=== PATIENT | female | born 1930 | race Caucasian/White ===

== ENCOUNTER 2019-09-25 16:01 | Inpatient (IN) | payer OTHER ==
[~2019-09-25] VITALS: Ht 157.5 cm; Wt 65.8 kg
[2019-09-25 16:02] VITALS: BP_SYST 152
--- NOTE | 2019-09-25 16:10 | NUR ---
Patient presented to ER C/O abdominal pain. PAtient A&Ox4, afebrile, BIB grandson in wheelchair, skin pink and warm, cap refill <3, pain 8/10, N/V/D. Patient states abdominal pain with N/V/D started today at 0215. Patient states she had dinner out last night with family, and she is the only family member experiencing symptoms. Family of patient states this am patient had slurred speech and has HX CVA. PAtient speaking in full sentences, no facial droop noted, no slurred speech at this time.
--- NOTE | 2019-09-25 16:12 | NUR ---
MAYRA Mendes at bedside examining patient.
[2019-09-25] MEDS ORDERED: NACL 0.9% 1,000 ML IV ONE (16:15)
[2019-09-25] MEDS ORDERED: ONDANSETRON HCL 4 MG/2 ML VIAL IVP ONE (16:15)
[2019-09-25] MEDS ORDERED: MORPHINE 2 MG/ML INJ. SYRINGE IVP ONE (16:15)
--- NOTE | 2019-09-25 16:25 | NUR ---
# 20 gauge angiocath placed to right AC. Use of asceptic technique. Opsite placed over site. Blood return noted. Blood for lab drawn from site. Flushed with 10 cc of normal saline. No evidence of infiltration noted. Patient tolerated well. Medicated per MD orders. IVF infusing with no s/s of infiltration at this time. Will cont to monitor
--- NOTE | 2019-09-25 16:30 | NUR ---
NIH stroke scale complete, score 0= No stroke
[2019-09-25 16:35] LABS: BASOPHILS # (AUTO) 0.1 K/uL (0.0-0.2); BASOPHILS % (AUTO) 0.9 % (0.0-2.0); HEMATOCRIT 37.3 % (36-48); HEMOGLOBIN 12.3 g/dL (12.0-16.0); LYMPHOCYTES # (AUTO) 1.5 K/uL (1.0-5.5); MEAN CORPUSCULAR HEMOGLOBIN 29 pg (27-31); MEAN CORPUSCULAR HGB CONC 33 % (32-36); MEAN CORPUSCULAR VOLUME 87 fL (79.0-98.0); MONOCYTES # (AUTO) 0.4 K/uL (0.0-1.0); NEUTROPHILS # (AUTO) 10.6 K/uL (1.8-7.7); NEUTROPHILS % (AUTO) 84.1 % (40.0-70.0); PLATELET COUNT (AUTO) 340 K/uL (130-430); RED CELL DISTRIBUTION WIDTH 15.7 % (9.0-15.0); WHITE BLOOD COUNT (AUTO) 12.6 K/uL (4.8-10.8)
[2019-09-25 16:49] LABS: ANION GAP 12 (5-15); CALCIUM 9.7 mg/dL (8.4-11.0); CHLORIDE 92 mmol/L (98-107); CREATININE 1.08 mg/dL (0.55-1.30); GLUCOSE 263 mg/dL (70-99); SODIUM SERUM 129 mmol/L (136-145); UREA NITROGEN, BLOOD 23 mg/dL (8-21)
[2019-09-25 16:54] LABS: ALANINE AMINOTRANSFERASE 12 U/L (12-78); ALBUMIN 3.7 g/dL (3.4-4.8); ASPARTATE AMINOTRANSFERASE 11 U/L (10-37); LIPASE 304 U/L (73-393); TOTAL BILIRUBIN 0.7 mg/dL (0.0-1.0)
--- NOTE | 2019-09-25 16:55 | NUR ---
EKG performed at BS by Daljit PEDRAZA. Physician given copy of EKG for review.
[2019-09-25] MEDS ORDERED: INSULIN REGULAR, HUMAN 10 UNITS/0.1 ML INJ IVP ONE (17:15)
--- NOTE | 2019-09-25 17:15 | NUR ---
Placed patient on bedpan for urine specimen collection
[2019-09-25] MEDS ORDERED: VALS1TAB78 PO (19:27)
[2019-09-25] MEDS ORDERED: GLIM4TAB PO (19:27)
[2019-09-25] MEDS ORDERED: METF-381 PO (19:27)
[2019-09-25] MEDS ORDERED: LIP10 PO (19:27)
[2019-09-25] MEDS ORDERED: ATEN50TA PO (19:27)
--- NOTE | 2019-09-25 19:27 | NUR ---
Medication reconciliation completed with information provided by patient. Any prior medication reconciliation on file was reviewed and corrected.
--- NOTE | 2019-09-25 19:30 | NUR ---
Report to Navdeep Conteh RN
[2019-09-25] MEDS ORDERED: METOCLOPRAMIDE HCL 10 MG/2 ML VIAL IVP PRN (20:15)
[2019-09-25] MEDS ORDERED: DEXTROSE 50% JECT 50 ML DISP.SYRIN IVP PRN (20:15)
--- NOTE | 2019-09-25 20:30 | NUR ---
Note bobbi in EDM - 09/25/19 at 2111 by JACKSON # 14 FR NG tube placed to l nare. Placement checked by auscultation of instilled air into stomach and aspiration of gastric contents. Tubing taped in place to prevent dislodging. Patient tolerated well.
[2019-09-25] MEDS: ATENOLOL 50 MG TABLET (TENORMIN) PO SCH (21:00)
--- NOTE | 2019-09-25 21:00 | NUR ---
Pt resting in ED bed, No apparent distress noted at this time. Pt given blanket for comfort.
--- NOTE | 2019-09-25 21:00 | NUR ---
Patient will be admitted to care of . Admitted to M/S unit. Will go to room 109C. Belongings list completed. Summary report printed. Report will be given at bedside.
--- NOTE | 2019-09-25 21:14 | NUR ---
Transfer to [facility]. IV present no sign or symptom of infiltration.
--- NOTE | 2019-09-25 21:35 | NUR ---
Admission Note Received patient from ER with diagnosis of SMALL BOWEL OBSTRUCTION. Initial Plan of Care discussed-patient verbalized understanding. Family at bedside. Oriented to room, call light, pain management and safety.
[2019-09-25 21:51] VITALS: BP_SYST 135
[2019-09-25] MEDS: NACL 0.9% 1,000 ML IV SCH (22:23)
[2019-09-25] MEDS: INSULIN REGULAR, HUMAN 100 UNITS/ML, 10 ML VIAL (humuLIN R) SUBCUT PRN (23:32)
--- NOTE | 2019-09-25 23:32 | NUR ---
ACCUCHECK BLOOD SUGAR OF 174, 2 UNITS OF REGULAR INSULIN ADMINISTERED PER SLIDING SCALE.
[2019-09-26 00:20] VITALS: BP_SYST 130
--- NOTE | 2019-09-26 01:45 | NUR ---
CONSULTATION PAGED/CALLED Reason for Consultation: SBO Person Who was Notified: ADÁN Consulting Physician: ELIZA Aging Room Hand Specialty: SURGERY Ordering Physician: IRWIN
--- NOTE | 2019-09-26 02:06 | NUR ---
BEDPAN ASSISTED PT TO USE BEDPAN TO URINATE. PERICARE PROVIDED. PT NOW RESTING IN BED, NO S/S OF DISTRESS. SAFETY AND FALL PRECAUTIONS ARE IN PLACE, CALL LIGHT IS WITH PT. WILL MONITOR.
[2019-09-26] MEDS: MORPHINE 4 MG/ML INJ. SYRINGE IVP PRN ×4 (02:24→17:45)
[2019-09-26] MEDS: ONDANSETRON HCL 4 MG/2 ML VIAL IVP PRN ×3 (02:26→20:55)
--- NOTE | 2019-09-26 02:26 | NUR ---
ZOFRAN/MORPHINE PT REPORTING SEVERE STOMACH AND BACK PAIN, WELL NAUSEA. MORPHINE 4 MG IVP GIVEN FOR SEVERE PAIN. ZOFRAN 4 MG IVP ADMINISTERED FOR NAUSEA. PT TOLERATED WELL. PT STATES THAT SHE IS ANXIOUS. PT ENCOURAGED TO TAKE DEEP BREATHES AND PROVIDED REASSURANCE. PT NOW SLEEPING IN BED WITH NO S/S OF ACUTE DISTRESS. SAFETY AND FALL PRECAUTIONS ARE IN PLACE. WILL MONITOR.
--- NOTE | 2019-09-26 04:50 | NUR ---
NAUSEA/REGLAN PT REPORTING NAUSEA. REGLAN 10 MG IVP ADMINISTERED. MEDICATION AND POTENTIAL SIDE EFFECTS DISCUSSED WITH PT, PT VERBALIZED UNDERSTANDING. PT REPOSITIONED FOR COMFORT. SAFETY PRECAUTIONS MAINTAINED. WILL MONITOR.
[2019-09-26] MEDS: NACL 0.9% 1,000 ML IV SCH ×3 (05:39→20:44)
[2019-09-26] MEDS: INSULIN REGULAR, HUMAN 100 UNITS/ML, 10 ML VIAL (humuLIN R) SUBCUT PRN ×3 (05:44→17:11)
--- NOTE | 2019-09-26 05:44 | NUR ---
ACCUCHECK BLOOD SUGAR OF 199, 2 UNITS OF REGULAR INSULIN ADMINISTERED PER SLIDING SCALE.
--- NOTE | 2019-09-26 06:44 | NUR ---
CLOSING NOTES PATIENT RESTING IN BED. BREATHING UNLABORED ON ROOM AIR. PATIENT NEEDS ATTENDED. BED IN LOWEST LOCKED POSITION WITH ALARM ON. SAFETY PRECAUTIONS IN PLACED. WILL ENDORSE TO DAY SHIFT RN.
--- NOTE | 2019-09-26 07:50 | NUR ---
INITIAL NOTE RECEIVED PT IN BED, NO S/S OF DISTRESS OR SOB NOTED, PT HAS PAIN 1/10 IN ABDOMEN, TOLERABLE AT THIS TIME, PAIN MEDICATION WAS ADMINISTERED PRN ORDERED. PT IN STABLE CONDITION, PT AAOX4, VERBAL. IV CATHETER PATENT, RUNNING IV FLUIDS ORDERED, NO SIGNS OF INFECTION OR INFILTRATION NOTED. PT HAS AN NG TUBE TO LEFT NARES, INTERMITTENT CONTINUOUS SUCTION, PATENT. BED AT LOWEST POSITION, CALL LIGHT WITHIN REACH, WILL CONTINUE TO MONITOR PT FOR ANY CHANGES, FALL AND SAFETY PRECAUTIONS IN PLACE. PT NPO AWAITING FOR DR KAY TO ROUND. Addendum: 09/26/19 at 0809 by Yumi Whitley RN NG TUBE CLAMPED NOT CONNECTED TO SUCTION
[2019-09-26 07:52] LABS: BASOPHILS # (AUTO) 0.1 K/uL (0.0-0.2); BASOPHILS % (AUTO) 0.6 % (0.0-2.0); HEMATOCRIT 37.7 % (36-48); HEMOGLOBIN 12.7 g/dL (12.0-16.0); LYMPHOCYTES % (AUTO) 11.6 % (20.5-51.5); MEAN CORPUSCULAR HEMOGLOBIN 29 pg (27-31); MEAN CORPUSCULAR HGB CONC 34 % (32-36); MEAN CORPUSCULAR VOLUME 86 fL (79.0-98.0); MONOCYTES # (AUTO) 1.1 K/uL (0.0-1.0); MONOCYTES % (AUTO) 6.4 % (1.7-9.3); NEUTROPHILS # (AUTO) 14.2 K/uL (1.8-7.7); NEUTROPHILS % (AUTO) 81.4 % (40.0-70.0); PLATELET COUNT (AUTO) 340 K/uL (130-430); RED BLOOD CELL COUNT(AUTO) 4.37 MIL/uL (4.2-6.2); RED CELL DISTRIBUTION WIDTH 15.7 % (9.0-15.0)
[2019-09-26 07:58] LABS: ALANINE AMINOTRANSFERASE 10 U/L (12-78); ALBUMIN 3.3 g/dL (3.4-4.8); ANION GAP 13 (5-15); ASPARTATE AMINOTRANSFERASE 13 U/L (10-37); CALCIUM 9.1 mg/dL (8.4-11.0); CHLORIDE 95 mmol/L (98-107); CREATININE 1.02 mg/dL (0.55-1.30); GLUCOSE 230 mg/dL (70-99); POTASSIUM 3.4 mmol/L (3.5-5.1); SODIUM SERUM 130 mmol/L (136-145); TOTAL BILIRUBIN 0.6 mg/dL (0.0-1.0); UREA NITROGEN, BLOOD 22 mg/dL (8-21)
[2019-09-26 08:00] VITALS: BP_SYST 155
[2019-09-26] MEDS: ATENOLOL 50 MG TABLET (TENORMIN) PO SCH ×2 (08:01→21:00)
[2019-09-26 08:15] LABS: WHITE BLOOD COUNT (AUTO) 17.5 K/uL (4.8-10.8)
--- NOTE | 2019-09-26 09:21 | NUR ---
MD ROUNDS DR IRWIN MARIA, AWARE OF PATIENT'S CONDITION, AWARE OF PATIENT'S BLOOD PRESSURE, NEW MEDICATIONS GIVEN AND SCD'S FOR DVT PROPHYLAXIS.
[2019-09-26] MEDS ORDERED: ASPIRIN 325 MG TABLET (ECOTRIN) PO ONE (09:45)
[2019-09-26] MEDS ORDERED: ASPIRIN 300 MG/SUPP.RECT SUPP RC ONE (10:00)
[2019-09-26] MEDS ORDERED: LEVOFLOXACIN 500 MG/D5W 100 ML IV SCH (10:00)
[2019-09-26] MEDS ORDERED: GASTROGRAFIN 120 ML ONE ×2 (10:01→12:39)
--- NOTE | 2019-09-26 10:01 | NUR ---
CONSULT CARDIOLOGY CVA DR LU [phone] S/W [place] OFFICE
--- NOTE | 2019-09-26 10:05 | NUR ---
[phone] [facility]
--- NOTE | 2019-09-26 10:08 | NUR ---
CONSULT GI ABDOMINAL PAIN DR SMITH [phone] S/W [place] OFFICE
--- NOTE | 2019-09-26 10:20 | NUR ---
ROUNDS PT IN BED, NO S/S OF DISTRESS OR SOB NOTED, PT HAS NO C/O PAIN AT THIS TIME, PT IN STABLE CONDITION. PT RESTING COMFORTABLY. WILL CONTINUE TO MONITOR PT FOR ANY CHANGES.
--- NOTE | 2019-09-26 10:35 | NUR ---
MD ROUNDS DR ELIZA MARIA, AWARE OF PATIENT'S CONDITION, NEW ORDER FOR SMALL BOWEL FOLLOW THROUGH TO BE DONE TODAY, PT MIGHT NEED TO HAVE SURGERY TODAY.
--- NOTE | 2019-09-26 10:53 | NUR ---
IV RE-INSERTION: IV on right ac accidentally came out, no active bleeding noted, catheter intact. Restarted on right arm, 20 gauge. Successful after one attempt. Resumed current IVF as ordered. Will observe for any signs of infiltration. Aseptic technique used.
[2019-09-26] MEDS: metroNIDAZOLE 500 mg/NS 100 ML IV SCH ×3 (11:02→22:00)
--- NOTE | 2019-09-26 11:30 | NUR ---
BLOOD GLUCOSE SPOKE WITH DR GAYLE IN REGARDS TO BLOOD GLUCOSE OF 354, PER MD TO GO AHEAD AND PROVIDE COVERAGE FOR THIS BLOOD GLUCOSE, 10 UNITS REGULAR INSULIN.
--- NOTE | 2019-09-26 11:45 | NUR ---
ASSISTED FALL PT WAS PICKED UP BY SUCTION PLATE CARRIER CLEANER TO GO TO MRI FOR BRAIN, VIDEO EDITOR AND FAMILY WAS THERE IN THE ROOM, PT WAS ASSISTED OUT OF BED AND THEN GOT WEAK AND STARTED TO SLID DOWN BUT WAS ASSISTED BY VIDEO EDITOR AND SON TO THE WHEELCHAIR. PT DID NOT HIT HER HEAD AND URINATED ON HERSELF DURING THE FALL. NURSE WAS NOT PRESENT BUT WAS CALLED AND WHEN I ARRIVED THE PATIENT WAS SITTING IN THE WHEELCHAIR, PT WAS ALERT AND ORIENTED X3, VERBAL. VSS, 98.6, 99% ROOM AIR SATURATION, 18, 89, 99/62. PT WAS ASSISTED BY ANALYTICAL STATISTICIAN AND NURSE BACK TO BED, DR IRWIN MARIA MADE AWARE THAT PT HAD AN ASSISTED FALL. NO NEW ORDERS GIVEN, MADE HIM AWARE PT DID NOT HIT HEAR HEAD. CHARGE NURSE ALLY MADE AWARE. DEYANIRA NURSE MUSEUM INFORMATICS SPECIALIST MADE AWARE. PT AAOX4, VERBAL, NO S/S OF DISTRESS OR SOB NOTED, PT IN STABLE CONDITION. WILL CONTINUE TO MONITOR PT FOR ANY CHANGES. VSS, 98.6, 18, 102/64, 88, SATURATION OF 99%.
--- NOTE | 2019-09-26 12:00 | NUR ---
MRI PT LEFT UNIT FOR MRI, PT IN STABLE CONDITION, NO S/S OF DISTRESS OR SOB NOTED, PT HAS NO C/O PAIN AT THIS TIME, PT AAOX4, VERBAL. IV CATHETER PATENT, NO SIGNS OF INFECTION OR INFILTRATION NOTED.
[2019-09-26 12:52] VITALS: BP_SYST 147
--- NOTE | 2019-09-26 14:05 | NUR ---
BACK FROM MRI PT BACK FROM MRI, PT IN STABLE CONDITION, NO S/S OF DISTRESS OR SOB NOTED, PT IN STABLE CONDITION, COMFORTABLE AT THIS TIME, NG TUBE WITH NO SUCTION BECAUSE PT IS GETTING A SMALL BOWEL FOLLOW THROUGH.
--- NOTE | 2019-09-26 14:29 | NUR ---
MD STALLINGS SPOKE WITH DR KAY, PER HE WANTS TO KNOW IF DR LU CLEARS PT FOR SURGERY, DR LU PAGED AND AWAITING CALL BACK TO ASK HIM. Addendum: 09/26/19 at 1440 by Yumi Whitley RN PER DR LU HE CLEARED HER FOR SURGERY JUST WANTS TO MAKE SURE THE CHEST X RAY IS DONE.
--- NOTE | 2019-09-26 15:55 | NUR ---
MD CALL SPOKE WITH DR KAY AND HE STATED HE DOES NOT NEED PT, PTT AND INR OR UA NEEDED PRIOR TO POSSIBLE SURGERY.
[2019-09-26 16:52] VITALS: BP_SYST 140
--- NOTE | 2019-09-26 17:43 | NUR ---
IV RE-INSERTION: IV on right forearm accidentally came out, no active bleeding noted, catheter intact. Restarted on right ac, 22 gauge. Successful after one attempt. Resumed current IVF as ordered. Will observe for any signs of infiltration. Aseptic technique used.
--- NOTE | 2019-09-26 18:10 | NUR ---
MD CALL CALLED DR KAY AND MADE HIM AWARE OF PRELIMINARY RESULTS OF SMALL BOWEL FOLLOW THROUGH, PER MD PT TO HAVE SURGERY TONIGHT.
--- NOTE | 2019-09-26 18:40 | NUR ---
MD ROUNDS DR ALLEN HERE TO SPEAK WITH PT ABOUT CONSENT FOR ANESTHESIA, PT WILL HAVE SURGERY IN ONE HOUR.
--- NOTE | 2019-09-26 18:41 | NUR ---
CLOSING NOTE PT IN BED, NO S/S OF DISTRESS OR SOB NOTED, PT HAS NO C/O PAIN AT THIS TIME, PT IN STABLE CONDITION, PT AAOX4, VERBAL. IV CATHETER PATENT, RUNNING IV FLUIDS ORDERED, NO SIGNS OF INFECTION OR INFILTRATION NOTED. PT HAS AN NG TUBE TO LEFT NARES, PATENT. BED AT LOWEST POSITION, CALL LIGHT WITHIN REACH, WILL ENDORSE CARE OF PT TO INCOMING NURSE, FALL AND SAFETY PRECAUTIONS IN PLACE. PT NPO AWAITING FOR DR KAY FOR SURGERY [facility].
--- NOTE | 2019-09-26 19:20 | NUR ---
INITIAL NOTE RECEIVED PT IN BED WITH FAMILY AT BEDSIDE, NO S/S OF DISTRESS OR SOB NOTED, PT HAS PAIN IN ABDOMEN AND NAUSEA, TOLERABLE AT THIS TIME.. PT IN STABLE CONDITION, PT AAOX4, VERBAL. IV CATHETER PATENT, RUNNING IV FLUIDS ORDERED, NO SIGNS OF INFECTION OR INFILTRATION NOTED. PT PULLED OUT NGT AT SHIFT CHANGE PER PT'S FAMILY. SAFETY PRECAUTIONS ARE IN PLACE: BED IS AT LOWEST POSITION, CALL LIGHT WITHIN REACH, WILL CONTINUE TO MONITOR PT FOR ANY CHANGES, FALL AND SAFETY PRECAUTIONS IN PLACE. PT NPO AWAITING SURGERY. POC DISCUSSED WITH PT AND FAMILY.
[2019-09-26 19:30] VITALS: BP_SYST 97
[2019-09-26] MEDS ORDERED: fentaNYL CITRATE/PF 100 MCG/2 ML AMP IVP PRN ×2 (22:15)
--- NOTE | 2019-09-26 23:13 | NUR ---
Arrived in ICU accompanied by car pre cooler, Dr. Steinberg and RT. Pt on vent/O2 sat at 100%. Skiin warm dry, pt none responsive at this time. EKG at RSR Rate 96. BP 150\86. Patient under care of car pre cooler.
[2019-09-27] VITALS (27 sets, daily range): BP systolic 98–168
[2019-09-27] MEDS ORDERED: MEPERIDINE HCL/PF 25 MG/ML DISP.SYRIN IVP PRN (00:15)
--- NOTE | 2019-09-27 00:25 | NUR ---
Received report from OR nurse, Namrata. Patient was placed in ICU bed 2, s/p exploratory laparoscopy of small bowel resection. Pt has hx of TIA, HTN and diabetes. Patient came in with 16F ervin in place, VSS, 7.5mm ETT tube lipline at 22cm with TV of 500 and FiO2 at 100%. Pt has 22gauge IV to Right AC, patent, no signs of infiltration, edema or erythema. Skin is intact. No drainage on dressing to midline abdomen from incision . No other injuries/complaints noted.
[2019-09-27] MEDS ORDERED: MEPERIDINE HCL/PF 25 MG/ML DISP.SYRIN ONE (00:27)
[2019-09-27] MEDS: NACL 0.9% 1,000 ML IV SCH ×2 (01:47→14:15)
[2019-09-27] MEDS: MORPHINE 2 MG/ML INJ. SYRINGE IVP PRN (01:56)
--- NOTE | 2019-09-27 03:00 | NUR ---
PATIENT IN BED, NO ACUTE DISTRESS. VSS. WILL CONTINUE TO MONITOR.
[2019-09-27] MEDS: MORPHINE 4 MG/ML INJ. SYRINGE IVP PRN ×2 (03:36→20:48)
[2019-09-27] MEDS: INSULIN REGULAR, HUMAN 100 UNITS/ML, 10 ML VIAL (humuLIN R) SUBCUT PRN ×3 (05:22→19:46)
[2019-09-27] MEDS: metroNIDAZOLE 500 mg/NS 100 ML IV SCH ×3 (05:23→22:52)
[2019-09-27 05:50] LABS: BASOPHILS % (AUTO) 0.1 % (0.0-2.0); HEMATOCRIT 35.9 % (36-48); LYMPHOCYTES % (AUTO) 9.9 % (20.5-51.5); MEAN CORPUSCULAR HEMOGLOBIN 29 pg (27-31); MEAN CORPUSCULAR HGB CONC 34 % (32-36); MEAN CORPUSCULAR VOLUME 87 fL (79.0-98.0); MONOCYTES # (AUTO) 0.7 K/uL (0.0-1.0); MONOCYTES % (AUTO) 6.4 % (1.7-9.3); NEUTROPHILS # (AUTO) 8.5 K/uL (1.8-7.7); NEUTROPHILS % (AUTO) 83.6 % (40.0-70.0); PLATELET COUNT (AUTO) 264 K/uL (130-430); RED BLOOD CELL COUNT(AUTO) 4.13 MIL/uL (4.2-6.2); RED CELL DISTRIBUTION WIDTH 15.9 % (9.0-15.0); WHITE BLOOD COUNT (AUTO) 10.2 K/uL (4.8-10.8)
[2019-09-27 06:08] LABS: INR 1.1 (0.8-1.2); PROTHROMBIN TIME 10.6 SECS (9.5-12.5)
[2019-09-27 06:13] LABS: ALANINE AMINOTRANSFERASE 29 U/L (12-78); ALBUMIN 2.5 g/dL (3.4-4.8); ANION GAP 14 (5-15); ASPARTATE AMINOTRANSFERASE 26 U/L (10-37); CALCIUM 8.1 mg/dL (8.4-11.0); CHLORIDE 99 mmol/L (98-107); CHOLESTEROL 129 mg/dL (<200); CREATININE 2.13 mg/dL (0.55-1.30); GLUCOSE 236 mg/dL (70-99); HDL CHOLESTEROL 51 mg/dL (>55); LDL CHOLESTEROL 55 mg/dL (<100); LIPASE 192 U/L (73-393); POTASSIUM 3.6 mmol/L (3.5-5.1); SODIUM SERUM 133 mmol/L (136-145); TOTAL BILIRUBIN 0.4 mg/dL (0.0-1.0); TRIGLYCERIDES 91 mg/dL (30-150); UREA NITROGEN, BLOOD 38 mg/dL (8-21)
--- NOTE | 2019-09-27 07:04 | NUR ---
PATIENT IN HOSPITAL BED, NO SIGNS OF ACUTE DISTRESS. RISE AND FALL OF CHEST IS SYMMETRICAL. PT HR IS CURRENTLY HR 95, 103/65, O2 100% RA. FIO2 @ 100, TIDAL VOLUME @ 500. PT LAYING IN SUPINE POSITION. IV TO RIGHT AC IS PATENT, NO ERYTHEMA, EDEMA OR INFILTRATION. AVITIA IS INTACT. ALL NEEDS MET. WILL ENDORSE CARE TO ONCOMING NURSE.
--- NOTE | 2019-09-27 07:30 | NUR ---
Received report to assume care. Pt does not respond to verbal instruction. LATONIA 2mm. Pt has an ET to vent and in no distress on the AC 12/500/100%. Lungs clear. HOB up. 02 sats 99%. Pts abd dressing is D/I. Abd tender with no bowel sounds. N pedal edema noptd. Feet lifted off of bed on pillows. IVf infusing to Right AC at 100cc/hr. Will continue to monitor pt.
--- NOTE | 2019-09-27 08:10 | NUR ---
RT NOTES Vent settings to SIMV 8 PS10 FIO2 50% per Dr Tavarez. No adverse reactions noted. Will monitor pt.
[2019-09-27] MEDS ORDERED: NACL 0.9% 1,000 ML IV ONE (08:15)
[2019-09-27] MEDS ORDERED: LEVOFLOXACIN 250 MG/D5W 50 ML IV SCH (09:00)
[2019-09-27] MEDS ORDERED: ASPIRIN 325 MG TABLET (ECOTRIN) PO SCH (09:00)
--- NOTE | 2019-09-27 09:10 | NUR ---
Opening Note Received plan of care via sbar from Sulema ALCARAZ. Completed patient round.
[2019-09-27] MEDS: ATENOLOL 50 MG TABLET (TENORMIN) PO SCH ×2 (09:25→20:46)
--- NOTE | 2019-09-27 09:29 | NUR ---
Called Dr. Fields with a consult, spoke with Renuka from doctors office
--- NOTE | 2019-09-27 09:30 | NUR ---
Critical Value Received ABG report and was given critical of BE of -6
--- NOTE | 2019-09-27 09:30 | NUR ---
Report given to Boogie to assume care of pt. Pt in SR rate 105 on monitor. Reed with very small amount of lynette urine in bag. Dr Tavarez rounded and orders left. NS bolus infusing.
--- NOTE | 2019-09-27 09:55 | NUR ---
Nutrition Update Yang Scale 12 noted. Pt admitted for SBO. Diet: NPO BMI: 26.8 kg/m2 RD to follow per nutrition care standards.
[2019-09-27] MEDS: PIPERACILLIN/TAZO 2.25G/DEX-IS 50 ML IV SCH ×3 (09:59→19:51)
--- NOTE | 2019-09-27 10:00 | NUR ---
Spoke with Dr. Fields and reported ABGs including critical value of BE -6. Per Dr. Fields proceed with Dr. Tavarez's vent changes to CPAP 5 PS 5 and she will be in to assess patient. If PT does not tolerate revert back to SIMV 8 TV 500 FIO2 50.
--- NOTE | 2019-09-27 10:25 | NUR ---
RT NOTES Vent settings to CPAP [address] Tavarez's order. Will monitor pt.
[2019-09-27] MEDS: ASPIRIN 300 MG/SUPP.RECT SUPP RC SCH (11:12)
--- NOTE | 2019-09-27 12:16 | NUR ---
Dietitian Recommendations * Recommend continuing NPO order * Consider advance diet if/when medically appropriate LP, RD Please refer to Nutrition Assessment for details. Addendum: 09/27/19 at [address] Amended: Links added.
--- NOTE | 2019-09-27 12:30 | NUR ---
SS NOTE: CLINICAL PARTNER was referred to see patient for assessment/collateral. CLINICAL PARTNER attempted to meet with pt but she was asleep. CLINICAL PARTNER phoned spouse, Boogie @ [phone] who was not available, CLINICAL PARTNER spoke with CELESTINA Moreno (grandson) instead. Demographic information confirmed and updated. Per Ramirez, pt has had problems with diarrhea and constipation this year. Pt had abdominal cramping and vomiting over the weekend with no relief prompting the family to bring the patient to the ED. Per Ramirez, pt is independent with her ADL's and only owns a cane at home. Pt lives in a one sonali home with 2 steps to the front and 2 steps in the back. Pt has a history of depression "long time ago", but denies being depressed now. Pt is receiving support from spouse and grandson. Pt's family does not have any SNF or HH preference but stated "prefers her to be home". Ramirez denies the patient having any advanced directive and CLINICAL PARTNER educated Ramirez on the importance of having one. CLINICAL PARTNER provided the patient with Advanced directive, POLST, SNF list at bedside. SS (phone # provided) will remain available when needed. Addendum: 09/27/19 at 1403 by Herminia MOSQUEDA CLINICAL PARTNER met with dtr Anel Moreno (p: [phone]) who stated pt might have an advanced directive and will provide copy once obtained from the dive superintendent.
--- NOTE | 2019-09-27 13:10 | NUR ---
RT NOTES Pt was extubated and placed on 3L NC, saturation 93-94%. No adverse reactions noted. Will monitor pt.
--- NOTE | 2019-09-27 13:45 | NUR ---
RT NOTES Pt cont. to tolerate 3L O2. No distress noted. Dtr at bedside.
[2019-09-27] MEDS ORDERED: NS 500 ML IV ONE (17:30)
--- NOTE | 2019-09-27 17:30 | NUR ---
Closing Note Provided plan of care via sbar to reciving nurse Amanuel ALCARAZ.
--- NOTE | 2019-09-27 19:45 | NUR ---
Opening Note Pt in bed, AAO but confused at times. Pt SR on the monitor, 3L NC. No s/s of distress noted. Pt has IVF infusing, no s/s of infiltration noted. IV sites C/D/I. Pt has ervin catheter in place, draining urine to gravity. Surgical dressing site noted, site C/D/I. No leakage noted. Pt being turned Q2H. Bed locked in lowest position, call light in reach, and safety precautions. Will continue to monitor.
--- NOTE | 2019-09-27 21:33 | NUR ---
PAGED PAGED DR GAYLE FOR ORDERS, SPOKE WITH NOEL
--- NOTE | 2019-09-27 22:06 | NUR ---
PAGEDx2 SECOND PAGE SENT OUT TO DR. GAYLE, SPOKE WITH BRIANDA
[2019-09-28] VITALS (16 sets, daily range): BP systolic 100–138
[2019-09-28] MEDS: PIPERACILLIN/TAZO 2.25G/DEX-IS 50 ML IV SCH ×4 (00:28→17:37)
[2019-09-28] MEDS: INSULIN REGULAR, HUMAN 100 UNITS/ML, 10 ML VIAL (humuLIN R) SUBCUT PRN ×4 (00:32→17:55)
--- NOTE | 2019-09-28 00:35 | NUR ---
Pt beginning to desaturate. Slightly altered LOC noted. Pupils PERRLA, able to follow commands, but confused. BP and HR stable. MD to be called.
--- NOTE | 2019-09-28 00:47 | NUR ---
PAGED PAGED DR. STOKES, SPOKE WITH FERN
--- NOTE | 2019-09-28 01:05 | NUR ---
PAGED x2 SECOND PAGE SENT TO DR. STOKES, SPOKE WITH FERN
--- NOTE | 2019-09-28 01:20 | NUR ---
MD Called Spoke with Dr. Pittman, regarding Pt status. Made aware of resp. distress and altered LOC. New orders received. Will carry out as ordered.
[2019-09-28] MEDS ORDERED: ALBUTEROL SULFATE 0.083% 2.5 MG/3 ML VIAL.NEB INH PRN (01:30)
--- NOTE | 2019-09-28 01:30 | NUR ---
Pt switched to Venti mask w/ FIO2 40%. Will continue to monitor.
[2019-09-28] MEDS ORDERED: FUROSEMIDE 40 MG/4 ML VIAL ONE (01:58)
[2019-09-28] MEDS ORDERED: FUROSEMIDE 40 MG/4 ML VIAL IVP SCH (02:00)
[2019-09-28] MEDS: ALBUTEROL SULFATE 0.083% 2.5 MG/3 ML VIAL.NEB INH SCH ×5 (02:23→20:40)
--- NOTE | 2019-09-28 02:38 | NUR ---
Pt in bed, remains altered, but able to follow some commands. VSS. Pt PERRLA noted. Will continue to monitor.
--- NOTE | 2019-09-28 04:10 | NUR ---
Pt in bed asleep. No distress noted. VSS. Pt still remains altered, but able to follow simple commands. Will continue to monitor.
[2019-09-28 05:31] LABS: BASOPHILS % (AUTO) 0.1 % (0.0-2.0); HEMATOCRIT 26.8 % (36-48); LYMPHOCYTES # (AUTO) 1.3 K/uL (1.0-5.5); LYMPHOCYTES % (AUTO) 11.1 % (20.5-51.5); MEAN CORPUSCULAR HEMOGLOBIN 29 pg (27-31); MEAN CORPUSCULAR HGB CONC 34 % (32-36); MEAN CORPUSCULAR VOLUME 86 fL (79.0-98.0); MONOCYTES # (AUTO) 0.8 K/uL (0.0-1.0); MONOCYTES % (AUTO) 7.2 % (1.7-9.3); NEUTROPHILS # (AUTO) 9.4 K/uL (1.8-7.7); NEUTROPHILS % (AUTO) 81.6 % (40.0-70.0); PLATELET COUNT (AUTO) 168 K/uL (130-430); RED BLOOD CELL COUNT(AUTO) 3.11 MIL/uL (4.2-6.2); RED CELL DISTRIBUTION WIDTH 15.7 % (9.0-15.0); WHITE BLOOD COUNT (AUTO) 11.5 K/uL (4.8-10.8)
[2019-09-28] MEDS: metroNIDAZOLE 500 mg/NS 100 ML IV SCH ×3 (05:57→22:00)
[2019-09-28] MEDS: NACL 0.9% 1,000 ML IV SCH ×3 (05:57→18:02)
[2019-09-28 06:04] LABS: ALANINE AMINOTRANSFERASE 18 U/L (12-78); ANION GAP 9 (5-15); ASPARTATE AMINOTRANSFERASE 25 U/L (10-37); CALCIUM 7.7 mg/dL (8.4-11.0); CHLORIDE 105 mmol/L (98-107); CREATININE 1.58 mg/dL (0.55-1.30); GLUCOSE 211 mg/dL (70-99); SODIUM SERUM 137 mmol/L (136-145); TOTAL BILIRUBIN 0.4 mg/dL (0.0-1.0); UREA NITROGEN, BLOOD 35 mg/dL (8-21)
[2019-09-28 06:09] LABS: POTASSIUM 2.7 mmol/L (3.5-5.1)
--- NOTE | 2019-09-28 06:45 | NUR ---
Closing Note Pt in bed, still confused, but able to follow commands. More oriented now, to name and place. Pt SR on the monitor, Venti mask w/ FIO2 @ 40%. Pt has IVF infusing. No s/s of infiltration noted. Pt has ervin catheter in place draining urine to gravity. Pt has incision site to ABD. Dressing in place, C/D/I. No leakage noted. Bed locked in lowest position, call light in reach, and safety precautions in place. Will endorse to on coming RN.
[2019-09-28] MEDS ORDERED: POTASSIUM CHLORIDE 60 MEQ in NS 500 ML IV ONE (07:00)
--- NOTE | 2019-09-28 07:14 | NUR ---
Endorsement Report given to oncoming RN at bedside via SBAR approach.
--- NOTE | 2019-09-28 07:30 | NUR ---
Opening Note Received patient report from LISSA Vital
--- NOTE | 2019-09-28 07:45 | NUR ---
Nursing Note Patient has garbled speech and left sided weakness, Dr. Tavarez at bedside and assessing patient. Physician entered orders for a MRI
--- NOTE | 2019-09-28 08:10 | NUR ---
CONSULTS. PT SEEN AND EXAMINED BY DR LU AND DR Robert PYLE. PT UNABLE TO LIFT HER LEFT ARM UP, HAND KENNEL WORKER WEAK.
[2019-09-28] MEDS: ATENOLOL 50 MG TABLET (TENORMIN) PO SCH ×2 (09:00→21:00)
[2019-09-28] MEDS: ASPIRIN 300 MG/SUPP.RECT SUPP RC SCH (09:00)
--- NOTE | 2019-09-28 12:00 | NUR ---
TO MRI Transporting patient to MRI department via gurney.
--- NOTE | 2019-09-28 12:10 | NUR ---
Nursing Note Patient repeatedly requesting for water, provided oral gratification via sponge in cold water. Patient tolerated
--- NOTE | 2019-09-28 12:55 | NUR ---
TO ICU. BROUGHT PATIENT BACK FROM MRI DEPT VIA [facility].
--- NOTE | 2019-09-28 15:20 | NUR ---
LOC. PATIENT ALERT TO HER NAME, ABLE TO STATE HER FULL NAME, AND DATE OF EXCEPT THE YEAR SHE WAS BORN. LEFT SIDE OF FACE DROOPING WHEN SHE WAS ASKED TO GIVE A SMILE.
--- NOTE | 2019-09-28 15:30 | NUR ---
SWALLOW EVAL PATIENT HAVING SWALLOW EVALUATION AT THIS HOUR. AND THEIR DAUGHTER WATCHING AND CONVERSING WITH THE SPECIFICATIONS CHECKER.
--- NOTE | 2019-09-28 15:44 | NUR ---
S.T. SWALLOW EVAL SWALLOW EVAL COMPLETED. PT PRESENTS W/ ML-MOD OROPHARYNGEAL DYSPHAGIA FOR PUREE AND THIN/THICK LIQUIDS W/ DELAYED BOLUS TRANSFER AT TIMES AND DELAYED SWALLOW INITIATION AT TIMES. NO S/S OF ASPIRATION. REC: PUREE DIET. THIN LIQUIDS OK. RESULTS AND RECOMMENDATIONS EXPLAINED TO DTR WHO VERBALIZED UNDERSTANDING. NURSE MERY NOTIFIED. G8996 CK G8997 CK G8998 CK NOMS LEVEL 4
--- NOTE | 2019-09-28 17:20 | NUR ---
[facility]. DIALED [phone], SPOKE TO MEY RN METALLURGICAL TESTER. REPORT GIVEN ON PATIENT'S STATUS. SHE SAID THAT THERE IS NO ICU BED AT THIS TIME. SHE ASKED TO FAX COPIES OF HISTORY AND PHYSICAL, CT'S AND MRI'S, LATEST VITAL SIGNS TO [phone] AND CARRIED OUT.
--- NOTE | 2019-09-28 18:08 | NUR ---
NEUROLOGIST DR Robert PYLE RETURNED TO SEE PATIENT AND TALKED TO HER FAMILY.
--- NOTE | 2019-09-28 18:57 | NUR ---
[facility]. CONFIRMED RECEIPT OF FAX COPIES TO LISSA MATHIAS.
--- NOTE | 2019-09-28 19:15 | NUR ---
PM ASSESSMENT Pt resting comfortably in bed with eyes closed. No signs of acute distress or discomfort noted. Family at bedside. VSS with SR seen on the monitor. Pt on O2 4L via NC, tolerating well with O2 sats @ 97% and even and unlabored breathing. Pt speech garbled but still understandable. Facial droopage noted to pt's left face and L sided weakness. MD's are aware of pt's status. Pt has R AC 22g, SL and R IJ triple Lumen infusing NS @ 100 cc/hr. Reed Cath noted draining urine to gravity. Incision site noted to pt's abdomen. Open to air, no drainage or order noted. SCD's noted to pt's bilateral lower extremities. Bed is locked and in lowest position, call light within reach, will cont to monitor pt.
--- NOTE | 2019-09-28 19:19 | NUR ---
Closing Note Provided patient report to LISSA Santos
--- NOTE | 2019-09-28 19:25 | NUR ---
[facility] transfer exchange called back regarding pt's transfer to facility. Spoke with Huber Honeycutt. [facility] states they are declining the transfer due to pt just having surgery and that the pt is out of window for [facility]. Will let family and doctor's know.
--- NOTE | 2019-09-28 19:42 | NUR ---
Page out to Dr. Tavarez regarding update on pt's transfer. Spoke to exchange.
--- NOTE | 2019-09-28 19:46 | NUR ---
Dr. Tavarez called back. Made MD aware of [facility] declining pt's transfer. Orders received, will carry out orders.
--- NOTE | 2019-09-28 19:52 | NUR ---
Page out to Dr. Christian regarding update on pt's transfer. Spoke to exchange.
--- NOTE | 2019-09-28 19:57 | NUR ---
Dr. Christian called back. Made MD aware of [facility] declining pt's transfer. Orders received, will carry out orders.
[2019-09-29] VITALS (17 sets, daily range): BP systolic 131–161
--- NOTE | 2019-09-29 02:00 | NUR ---
Pt in bed with eyes closed resting comfortably, no signs of acute distress or discomfort noted. Pt repositioned at this time. Will cont to monitor pt.
[2019-09-29] MEDS: ALBUTEROL SULFATE 0.083% 2.5 MG/3 ML VIAL.NEB INH SCH ×6 (03:48→23:50)
--- NOTE | 2019-09-29 04:20 | NUR ---
CHG Offered pt CHG bath, but family refused stating "Let her rest, will do it during the day". Educated pt and family on the benefits of CHG bath. Will cont to monitor pt.
[2019-09-29] MEDS: PIPERACILLIN/TAZO 2.25G/DEX-IS 50 ML IV SCH ×5 (05:08→23:58)
[2019-09-29] MEDS: NACL 0.9% 1,000 ML IV SCH (05:08)
[2019-09-29] MEDS: INSULIN REGULAR, HUMAN 100 UNITS/ML, 10 ML VIAL (humuLIN R) SUBCUT PRN ×4 (05:17→23:57)
[2019-09-29] MEDS: metroNIDAZOLE 500 mg/NS 100 ML IV SCH ×3 (05:54→21:19)
[2019-09-29 06:18] LABS: BASOPHILS % (AUTO) 0.2 % (0.0-2.0); HEMOGLOBIN 8.5 g/dL (12.0-16.0); LYMPHOCYTES # (AUTO) 1.3 K/uL (1.0-5.5); MEAN CORPUSCULAR HEMOGLOBIN 30 pg (27-31); MEAN CORPUSCULAR HGB CONC 35 % (32-36); MEAN CORPUSCULAR VOLUME 85 fL (79.0-98.0); MONOCYTES # (AUTO) 0.6 K/uL (0.0-1.0); MONOCYTES % (AUTO) 5.1 % (1.7-9.3); NEUTROPHILS # (AUTO) 10.7 K/uL (1.8-7.7); NEUTROPHILS % (AUTO) 84.7 % (40.0-70.0); PLATELET COUNT (AUTO) 177 K/uL (130-430); RED BLOOD CELL COUNT(AUTO) 2.82 MIL/uL (4.2-6.2); RED CELL DISTRIBUTION WIDTH 15.7 % (9.0-15.0); WHITE BLOOD COUNT (AUTO) 12.6 K/uL (4.8-10.8)
--- NOTE | 2019-09-29 06:30 | NUR ---
ENDORSEMENT Report given to oncoming dayshift RN and pt care was endorsed. No signs of acute distress or discomfort noted.
[2019-09-29 06:33] LABS: ALANINE AMINOTRANSFERASE 18 U/L (12-78); ALBUMIN 2.1 g/dL (3.4-4.8); ANION GAP 12 (5-15); ASPARTATE AMINOTRANSFERASE 28 U/L (10-37); CHLORIDE 109 mmol/L (98-107); CREATININE 0.93 mg/dL (0.55-1.30); GLUCOSE 206 mg/dL (70-99); SODIUM SERUM 144 mmol/L (136-145); TOTAL BILIRUBIN 0.5 mg/dL (0.0-1.0); UREA NITROGEN, BLOOD 20 mg/dL (8-21)
[2019-09-29 06:52] LABS: POTASSIUM 2.2 mmol/L (3.5-5.1)
--- NOTE | 2019-09-29 07:00 | NUR ---
AM ASSESSMENT. APPROACHED PATIENT AND SHE OPENED HER EYES TO VERBAL STIMULI, REPOSITIONED PT TO HER SIDE, HEAD OF BED ELEVATED. DAUGHTER IN LAW AND HER IN THE ROOM WATCHING HER.
--- NOTE | 2019-09-29 07:59 | NUR ---
Kevin Pace. called Left a voice message for Karolina. Dialed [phone]
[2019-09-29] MEDS ORDERED: POTASSIUM CHLORIDE 60 MEQ in D5W 500 ML IV ONE (08:00)
[2019-09-29] MEDS: KCL 20 mEq in D5/0.45NS 1000mL 1,000 ML IV SCH ×2 (08:59→18:36)
[2019-09-29] MEDS: ATENOLOL 50 MG TABLET (TENORMIN) PO SCH ×2 (09:00→21:17)
[2019-09-29] MEDS: ASPIRIN 300 MG/SUPP.RECT SUPP RC SCH (09:00)
--- NOTE | 2019-09-29 09:10 | NUR ---
[facility]. NOTIFIED DR GAYLE THAT THERE IS A SHORTAGE OF [facility]PP[facility]ORY IN THE PHARMACY. HE ASKED TO GET HOLD OF NEUROLOGIST FOR HIS ADVICE. PAGED DR Robert PYLE, AND REPORTED TO THE ABOVE SITUATION. NO NEW ORDERS RECEIVED.
--- NOTE | 2019-09-29 10:53 | NUR ---
LOC. PT SPEAKING TO HER SPOUSE AND REST OF HER FAMILY. SHE WAS CLAPPING HER HANDS WHEN ASKED TO DO. SPEECH THOUGH SLURRY.
--- NOTE | 2019-09-29 12:01 | NUR ---
DISCHARGE PLANNING Spoke w Dr Miranda in [facility], aware pt declined @ [facility] yest. States no need for transfer for higher level of care.
--- NOTE | 2019-09-29 15:00 | NUR ---
LOC. PT COOPERATIVE WITH STAFF, RUBBING HER FINGERS AGAINST HER FINGERS AND MASSAGING HER HANDS DIRECTED.
--- NOTE | 2019-09-29 16:12 | NUR ---
S.T. SWALLOW RE-EVAL SWALLOW RE-EVAL COMPLETED. AND GRANDSON PRESENT. PT EXHIBITS INCREASED L FACIAL DROOP, INCREASED TONGUE DEVIATION TO L UPON PROTRUSION, AND INCREASED L NEGLECT. PT PRESENTS W/ ML-MOD OROPHARYNGEAL DYSPHAGIA W/ DELAYED BOLUS TRANSFER AT TIMES AND DELAYED SWALLOW INITIATION AT TIMES. NO S/S OF ASPIRATION. REC: PUREE DIET. THIN LIQUIDS OK. VFSS ON WEDNESDAY TO FURTHER ASSESS PHARYNGEAL SWALLOW. AWAITING ORDER. RESULTS AND RECOMMENDATIONS DISCUSSED W/ GRANDSON WHO VERBALIZED UNDERSTANDING. NURSE MERY NOTIFIED. G8996 CJ G8997 CJ G8998 CJ NOMS LEVEL 5
--- NOTE | 2019-09-29 17:50 | NUR ---
TO TELEMETRY DEPT. TRANSFERRED CARE TO [facility]. TRANSPORTED TO ROOM 121-A, ACCOMPANIED BY FAMILY, VIA PORTABLE HOBBING PRESS OPERATOR, O2 NASAL CANNULA AT 4 L, IVF THRU RIGHT INTERNAL JUGULAR LINE, AVITIA CATHETER DRAINING WELL. DR Robert PYLE CAME IN AND SEEN PT IN THE NEW ROOM.
--- NOTE | 2019-09-29 19:15 | NUR ---
Opening Notes Received patient resting in bed alert and orient and able to verbalize her needs. Reed by gravity with yellow urine. Patient with left sided weakness. Right IJ intact infusing fluids. right ac intact flushed. Bed alarm is active and safety precautions in place. Patient has left sided weakness. Changed diet to Pureed, cleared by [facility] to give ice chips. Will monitor on rounds.
[2019-09-29] MEDS ORDERED: ASPIRIN 81 MG TABLET(ECOTRIN) PO SCH (20:00)
--- NOTE | 2019-09-29 22:05 | NUR ---
Patient resting in bed. Agitated wanting to pull out ervin catheter. Oriented to room and placed hands over blanket. Will monitor on rounds.
[2019-09-30] VITALS (14 sets, daily range): BP systolic 124–167
--- NOTE | 2019-09-30 00:16 | NUR ---
Spoke with Dr Miranda regarding patient altered status. Patient was previously able to speak words but currently mumbling. BP 143/92, HR 77, R 16, o2 95%, temp 97.1. Blood sugar 262 and [address] Miranda is aware of patient condition with No new orders. Will monitor patient per MD.
--- NOTE | 2019-09-30 02:01 | NUR ---
Patient resting comfortably. Sitter is in the room assisting with patient needs. No needs at this time. Will monitor on rounds.
--- NOTE | 2019-09-30 03:44 | NUR ---
No change in condition. Patient resting in bed. No appearance of pain or respiratory distress.
[2019-09-30] MEDS: ALBUTEROL SULFATE 0.083% 2.5 MG/3 ML VIAL.NEB INH SCH ×6 (03:49→23:01)
[2019-09-30] MEDS: KCL 20 mEq in D5/0.45NS 1000mL 1,000 ML IV SCH ×2 (04:33→16:37)
[2019-09-30] MEDS ORDERED: KCL 20 mEq in D5/0.45NS 1000mL 1,000 ML IV ONE (05:23)
[2019-09-30] MEDS: PIPERACILLIN/TAZO 2.25G/DEX-IS 50 ML IV SCH ×4 (05:46→23:52)
[2019-09-30] MEDS: metroNIDAZOLE 500 mg/NS 100 ML IV SCH ×3 (05:46→23:50)
[2019-09-30] MEDS: INSULIN REGULAR, HUMAN 100 UNITS/ML, 10 ML VIAL (humuLIN R) SUBCUT PRN ×2 (05:52→12:21)
[2019-09-30 06:40] LABS: BASOPHILS % (AUTO) 0.1 % (0.0-2.0); EOSINOPHILS % (AUTO) 0.3 % (0.0-4.0); HEMATOCRIT 24.4 % (36-48); HEMOGLOBIN 8.5 g/dL (12.0-16.0); LYMPHOCYTES # (AUTO) 1.6 K/uL (1.0-5.5); MEAN CORPUSCULAR HEMOGLOBIN 30 pg (27-31); MEAN CORPUSCULAR HGB CONC 35 % (32-36); MEAN CORPUSCULAR VOLUME 85 fL (79.0-98.0); MONOCYTES # (AUTO) 0.8 K/uL (0.0-1.0); MONOCYTES % (AUTO) 6.7 % (1.7-9.3); NEUTROPHILS # (AUTO) 9.3 K/uL (1.8-7.7); NEUTROPHILS % (AUTO) 78.9 % (40.0-70.0); PLATELET COUNT (AUTO) 167 K/uL (130-430); RED BLOOD CELL COUNT(AUTO) 2.87 MIL/uL (4.2-6.2); RED CELL DISTRIBUTION WIDTH 15.7 % (9.0-15.0); WHITE BLOOD COUNT (AUTO) 11.8 K/uL (4.8-10.8)
--- NOTE | 2019-09-30 06:48 | NUR ---
Closing Notes Patient in bed resting. Bed alarm active with scd's in place. IV intact on the right IJ infusing fluids. Right ac flushed and capped. Call light placed within reach, bed locked and low. Safety precautions in place. Will endorse care to oncoming shift.
[2019-09-30 06:56] LABS: ALANINE AMINOTRANSFERASE 20 U/L (12-78); ALBUMIN 1.9 g/dL (3.4-4.8); ANION GAP 5 (5-15); ASPARTATE AMINOTRANSFERASE 28 U/L (10-37); CALCIUM 7.6 mg/dL (8.4-11.0); CHLORIDE 106 mmol/L (98-107); CREATININE 0.73 mg/dL (0.55-1.30); GLUCOSE 232 mg/dL (70-99); SODIUM SERUM 135 mmol/L (136-145); TOTAL BILIRUBIN 0.6 mg/dL (0.0-1.0); UREA NITROGEN, BLOOD 12 mg/dL (8-21)
[2019-09-30 07:17] LABS: POTASSIUM 2.7 mmol/L (3.5-5.1)
--- NOTE | 2019-09-30 08:20 | NUR ---
ATTENDING MD DR LUDWIG WAS PAGED DIRECTLY, RE: CRITICAL K LEVEL.
--- NOTE | 2019-09-30 08:55 | NUR ---
NEUROLOGIST DR Robert PYLE WAS CALLED, RE: CHANGE OF PT'S CONDITION. SPOKE TO JEANETTE.
[2019-09-30] MEDS: ATENOLOL 50 MG TABLET (TENORMIN) PO SCH ×2 (09:00→21:00)
[2019-09-30] MEDS ORDERED: ASPIRIN 81 MG TABLET(ECOTRIN) PO SCH (09:00)
--- NOTE | 2019-09-30 09:00 | NUR ---
rounds seen by dr mercedes and stated a neuro changed on the patient. spoke with dr brianna spencer and with order.
[2019-09-30] MEDS: POTASSIUM CHLORIDE 40 MEQ in 0.45% NS 250 ML IV SCH ×2 (12:07→14:00)
--- NOTE | 2019-09-30 14:00 | NUR ---
rounds seen by dr brianna fountain t bedside and spoke with family. stated that patienmt will be transferred to icu. awaiting for bed . no sob noted. pt is stable at this time.
--- NOTE | 2019-09-30 15:27 | NUR ---
transfer notes pt was transferred to icu report given to loulou. dr cole was made aware re transfer back to icu. pt family at bedside at time of transfer from [facility]. no sob noted.
--- NOTE | 2019-09-30 15:30 | NUR ---
Received patient and report from [facility] [place] nurse Ramires transferred via bed. In no acute distress. On 02 via AL 3 liters. Family at bedside. Placed on satellite technician.
[2019-09-30] MEDS ORDERED: DEXTROSE 50% JECT 50 ML DISP.SYRIN IVP PRN (16:15)
[2019-09-30] MEDS ORDERED: *TPN PER PHARMACY XX PRN (16:15)
[2019-09-30] MEDS: MORPHINE 2 MG/ML INJ. SYRINGE IVP PRN (16:23)
[2019-09-30] MEDS ORDERED: ASPIRIN 300 MG/SUPP.RECT SUPP RC ONE (16:30)
[2019-09-30] MEDS: D5LR 1,000 ML IV SCH (16:49)
--- NOTE | 2019-09-30 17:30 | NUR ---
MD Clifford new order 40 meq K-rider, discontinue current IV fluids. Orders placed and carried out.
--- NOTE | 2019-09-30 17:36 | NUR ---
Nutrition Follow Up RD reviewed pt's current EMR including diet hx, physician notes, nursing notes, pertinent labs/meds/procedures, care trends and care activity. Current diet order: Puree x 0 days PO intake 25% x 1 meal Medical History: CT scan of the head repeated; revealed cerebral infarction per MD note. Pt's mental status deteriorated, unable to respond to simple orders per MD note. Subjective Information: Pt seen resting in bed. Pt is aphasic per MD notes. Per nursing, pt unable to tolerate meal well likely due to deterioration of mental status. Pt transferred to ICU, TPN order pending. Estimated Energy Expenditure (kcals/day) 0229-2555 kcal/day (30-35 kcal/kg Adj IBW for surgical healing) Estimated Protein Required (g/day) 65-81 gm/day (1.2-1.5 gm/kg Adj IBW for surgical healing) Estimated Fluid Required (l/day) 1.7 L/day (25 ml/kg CBW for geriatric maintenance) Problem/Etiology/Signs/Symptoms Increased nutritional needs related to metabolic demands as evidenced by estimated nutritional requirements for surgical healing. *ongoing* Inadequate protein energy intake related to deterioration in mental status as evidenced by PO intake <50% *new* Expected Outcomes/Goals - Monitor advancement of diet, appetite, and PO intakes w/ goal of pt meeting at least 50% of estimated nutritional needs, labs trending WNL, normal GI function, and skin integrity/wt maintenance Dietitian Recommendations * When/if medically appropriate, initiate nutrition support Follow Up High Risk: F/U in 2-3days LT, RD
--- NOTE | 2019-09-30 17:46 | NUR ---
Dietitian Recommendation * When/if medically appropriate, initiate nutrition support Please see Nutrition Follow Up for details. LT, RD
--- NOTE | 2019-09-30 19:10 | NUR ---
Gave report and patient to oncoming nurse. Patient in no acute distress.
--- NOTE | 2019-09-30 20:00 | NUR ---
MORALES WAS ACCEPTED AND ASSESS DONE, NURO CHECK Q ONE HOUR LEFT SIDE WEAKNESS LEFT ARM FLACCID SOME MOVENT OF THE LEFT FOOT , PATIENT MOVEMNT OF THE RIGHT SIDE RIOS MILD HAND GRASP OT THE RIGHT HAND PATIENT HAS DYPHASIA , TONGUE DEVIATE TO THE RIGHT RECONIZED THE FAMILY AND WILL ANSWERE THERE QUESTION BEST OF HER KNOWLEDGE OCCASIONAL HER EYES WOULD OPEN WILD EXPRESSION RESTLESS AT TIME NO PAIN 2200 BP 2WOULD OCCASIONAL WOULD 170/68 THEN DROP TO 155/64 STABLE 10/01/2019 0000 FAMILY AT BEDSIDE , PATIENT IS NPO UNABLE TO CONSUMED PO MEDICATION , NEED NGT TUBE FOR MEDICATION , HAS AN IVF OFLR 5% AT 50ML/HR, ALSO HAS AN KCL RIDDER INFUSION , STABLE 0300 COMPLETED AM BATH WAS GIVEN , NOTICE ON THE COCCYX TWO BLISTER, ONE HAS BROKEN PICTURE WERE TAKEN AND DRSG APPLIED, STABLE 0600 NO CHANGE WITH NURO STATUS WILL TRACK AND LOOK AT THE PERSON LONGER PATIENT IS ON BLOD GLUCOSE Q 6HR WITH COVERAGE OF INSULIN , STABLE WILL CONTINUED WITH PLAN OF CARE, STABLE
[2019-09-30] MEDS ORDERED: KCL 40 mEq in 100 mL (PREMIX) 100 ML IV ONE (23:55)
[2019-10-01] VITALS (24 sets, daily range): BP systolic 136–180
[2019-10-01] MEDS: ALBUTEROL SULFATE 0.083% 2.5 MG/3 ML VIAL.NEB INH SCH ×5 (02:55→23:00)
[2019-10-01 06:52] LABS: BASOPHILS % (AUTO) 0.2 % (0.0-2.0); EOSINOPHILS # (AUTO) 0.1 K/uL (0.0-0.4); EOSINOPHILS % (AUTO) 0.7 % (0.0-4.0); HEMATOCRIT 22.5 % (36-48); HEMOGLOBIN 7.9 g/dL (12.0-16.0); LYMPHOCYTES # (AUTO) 1.6 K/uL (1.0-5.5); MEAN CORPUSCULAR HEMOGLOBIN 30 pg (27-31); MEAN CORPUSCULAR HGB CONC 35 % (32-36); MEAN CORPUSCULAR VOLUME 85 fL (79.0-98.0); NEUTROPHILS # (AUTO) 7.3 K/uL (1.8-7.7); NEUTROPHILS % (AUTO) 73.1 % (40.0-70.0); PLATELET COUNT (AUTO) 154 K/uL (130-430); RED BLOOD CELL COUNT(AUTO) 2.66 MIL/uL (4.2-6.2); RED CELL DISTRIBUTION WIDTH 15.9 % (9.0-15.0); WHITE BLOOD COUNT (AUTO) 9.9 K/uL (4.8-10.8)
[2019-10-01 07:24] LABS: ALANINE AMINOTRANSFERASE 18 U/L (12-78); ANION GAP 5 (5-15); ASPARTATE AMINOTRANSFERASE 25 U/L (10-37); CALCIUM 7.8 mg/dL (8.4-11.0); CHLORIDE 111 mmol/L (98-107); CHOLESTEROL 99 mg/dL (<200); CREATININE 0.72 mg/dL (0.55-1.30); GLUCOSE 232 mg/dL (70-99); HDL CHOLESTEROL 38 mg/dL (>55); LDL CHOLESTEROL 39 mg/dL (<100); PHOSPHORUS 1.7 mg/dL (2.7-4.5); POTASSIUM 3.6 mmol/L (3.5-5.1); SODIUM SERUM 139 mmol/L (136-145); TOTAL BILIRUBIN 0.6 mg/dL (0.0-1.0); TRIGLYCERIDES 57 mg/dL (30-150); UREA NITROGEN, BLOOD 15 mg/dL (8-21)
[2019-10-01] MEDS: PIPERACILLIN/TAZO 2.25G/DEX-IS 50 ML IV SCH ×3 (07:43→17:38)
[2019-10-01] MEDS: INSULIN REGULAR, HUMAN 100 UNITS/ML, 10 ML VIAL (humuLIN R) SUBCUT PRN ×4 (07:53→17:25)
--- NOTE | 2019-10-01 08:15 | NUR ---
Opening Note Received plan of care via sbar from Susu Morris RN.
[2019-10-01] MEDS: metroNIDAZOLE 500 mg/NS 100 ML IV SCH ×3 (08:18→21:41)
[2019-10-01] MEDS ORDERED: ASPIRIN 600 MG RC SCH (09:00)
--- NOTE | 2019-10-01 09:00 | NUR ---
Dr. Tavarez at bedside. Received orders to tube feed Jevity 1.5 30 cc water flush 150 q 6.
--- NOTE | 2019-10-01 10:00 | NUR ---
NG TUBE PLACEMENT: # 16 FR NG tube placed to R nare. Placement checked by auscultation of instilled air into stomach and aspiration of gastric contents. Tubing taped in place to prevent dislodging. Patient tolerated without complaint. LISSA Hyman and Maria Luisa auscultated to confirm placement.
[2019-10-01] MEDS: ATENOLOL 50 MG TABLET (TENORMIN) PO SCH ×2 (10:13→21:42)
[2019-10-01] MEDS: ASPIRIN 300 MG/SUPP.RECT SUPP RC SCH (10:15)
--- NOTE | 2019-10-01 11:00 | NUR ---
Dr. Khanna mentioned that he will include his recommendation of starting hypertonic saline 3% to prevent swelling and will have sodium or BMP Q6.
--- NOTE | 2019-10-01 11:00 | NUR ---
Dr. Sherman at bedside. Received orders to order CT scan if any signs of stroke is determined.
[2019-10-01] MEDS: D5LR 1,000 ML IV SCH (11:41)
--- NOTE | 2019-10-01 15:00 | NUR ---
Dr. Clifford at bedside. Told MD that pt is not on tube feeding. Dr. Clifford said okay to proceed with TPN and see if she tolerates tubefeeding.
[2019-10-01] MEDS ORDERED: MULTIVIT-MINERALS/FERROUS GLUC 15 ML UDC GT ONE (15:30)
[2019-10-01] MEDS: hydrALAZINE HCL 20 MG/ML VIAL IVP PRN (16:23)
[2019-10-01] MEDS: MORPHINE 2 MG/ML INJ. SYRINGE IVP PRN (16:24)
--- NOTE | 2019-10-01 19:44 | NUR ---
Closing Note Provided plan of care to receiving nurse Ranjeet ALCARAZ.
--- NOTE | 2019-10-01 20:00 | NUR ---
TPN started @ ordered rate 42 ML HOUR patient tolerating continue to monitor .
--- NOTE | 2019-10-01 20:10 | NUR ---
Lipids started @ ordered rate 5 ML HOUR patient awake , continue to monitor family also at the beside .
[2019-10-01] MEDS ORDERED: SODIUM ACETATE IV SCH ×10 (21:00)
[2019-10-01] MEDS ORDERED: [UNRECOGNIZED DRUG - OTHER] IV SCH ×10 (21:00)
[2019-10-01] MEDS ORDERED: K PHOS IV SCH ×10 (21:00)
[2019-10-01] MEDS ORDERED: MAGNESIUM SULFATE IV SCH ×10 (21:00)
[2019-10-01] MEDS ORDERED: TPN CENTRAL IV SCH ×10 (21:00)
[2019-10-01] MEDS: FAT EMULSIONS 250 ML IV SCH (21:04)
--- NOTE | 2019-10-01 23:03 | NUR ---
ABDOMINAL dressing clean dry no s/sx of bleeding , patient awake on and off comfort measures implemented & tolerating .
--- NOTE | 2019-10-01 23:32 | NUR ---
Left sided weakness noted to both arm & Left leg Right arm hand motor movement noted wnl Right leg weakness noted .
[2019-10-02] VITALS (19 sets, daily range): BP systolic 130–175
[2019-10-02] MEDS: PIPERACILLIN/TAZO 2.25G/DEX-IS 50 ML IV SCH ×4 (00:52→18:56)
[2019-10-02] MEDS: hydrALAZINE HCL 20 MG/ML VIAL IVP PRN ×3 (00:53→21:31)
[2019-10-02] MEDS: INSULIN REGULAR, HUMAN 100 UNITS/ML, 10 ML VIAL (humuLIN R) SUBCUT PRN ×3 (00:56→12:02)
[2019-10-02] MEDS: MORPHINE 2 MG/ML INJ. SYRINGE IVP PRN (01:20)
--- NOTE | 2019-10-02 02:27 | NUR ---
APRESOLINE 10 MG IVP administer for HTN and helpful BP 122/73 HR 87 BPM .
[2019-10-02] MEDS: ALBUTEROL SULFATE 0.083% 2.5 MG/3 ML VIAL.NEB INH SCH ×6 (03:00→23:11)
[2019-10-02 06:40] LABS: BASOPHILS % (AUTO) 0.2 % (0.0-2.0); EOSINOPHILS # (AUTO) 0.2 K/uL (0.0-0.4); EOSINOPHILS % (AUTO) 1.4 % (0.0-4.0); HEMATOCRIT 24.1 % (36-48); HEMOGLOBIN 8.2 g/dL (12.0-16.0); LYMPHOCYTES # (AUTO) 1.8 K/uL (1.0-5.5); LYMPHOCYTES % (AUTO) 15.1 % (20.5-51.5); MEAN CORPUSCULAR HEMOGLOBIN 29 pg (27-31); MEAN CORPUSCULAR HGB CONC 34 % (32-36); MEAN CORPUSCULAR VOLUME 86 fL (79.0-98.0); MONOCYTES # (AUTO) 0.9 K/uL (0.0-1.0); MONOCYTES % (AUTO) 7.8 % (1.7-9.3); NEUTROPHILS # (AUTO) 8.9 K/uL (1.8-7.7); NEUTROPHILS % (AUTO) 75.5 % (40.0-70.0); PLATELET COUNT (AUTO) 163 K/uL (130-430); RED BLOOD CELL COUNT(AUTO) 2.81 MIL/uL (4.2-6.2); RED CELL DISTRIBUTION WIDTH 16.2 % (9.0-15.0); WHITE BLOOD COUNT (AUTO) 11.8 K/uL (4.8-10.8)
[2019-10-02] MEDS: metroNIDAZOLE 500 mg/NS 100 ML IV SCH ×3 (06:48→21:30)
[2019-10-02 06:57] LABS: ALANINE AMINOTRANSFERASE 13 U/L (12-78); ALBUMIN 2.1 g/dL (3.4-4.8); ANION GAP 7 (5-15); ASPARTATE AMINOTRANSFERASE 25 U/L (10-37); CALCIUM 8.1 mg/dL (8.4-11.0); CHLORIDE 107 mmol/L (98-107); CREATININE 0.69 mg/dL (0.55-1.30); GLUCOSE 363 mg/dL (70-99); PHOSPHORUS 2.5 mg/dL (2.7-4.5); POTASSIUM 3.2 mmol/L (3.5-5.1); SODIUM SERUM 141 mmol/L (136-145); TOTAL BILIRUBIN 0.5 mg/dL (0.0-1.0); UREA NITROGEN, BLOOD 14 mg/dL (8-21)
--- NOTE | 2019-10-02 07:05 | NUR ---
Opening Note Patient received in bed @ this time. Patient on 3L nasal cannula breathing evenly and unlabored. No signs of distress noted. Patient has a RIJ infusing TPN @ 42 ml/hr and lipids @ 5 ml/hr and D5LR @ 50 ml/hr. Patient has a right nare NGT patent, flushing well, and clamped. Patient has a ervin catheter in place draining yellow urine. Skin intact. Safety precautions enforced.
--- NOTE | 2019-10-02 07:26 | NUR ---
MD Rounds Dr. Tavarez @ bedside. New orders received and carried out.
[2019-10-02] MEDS: ATENOLOL 50 MG TABLET (TENORMIN) PO SCH ×2 (08:42→21:32)
[2019-10-02] MEDS: MULTIVIT-MINERALS/FERROUS GLUC 15 ML UDC GT SCH (08:42)
[2019-10-02] MEDS: ASPIRIN 300 MG/SUPP.RECT SUPP RC SCH (08:43)
--- NOTE | 2019-10-02 09:37 | NUR ---
MD Rounds Dr. Miranda @ bedside. No new orders received.
[2019-10-02] MEDS ORDERED: POTASSIUM CHLORIDE 60 MEQ in NS 500 ML IV SCH (09:52)
[2019-10-02] MEDS ORDERED: POTASSIUM CHLORIDE 20 MEQ/PKT PACKET PO ONE (10:00)
--- NOTE | 2019-10-02 10:00 | NUR ---
MD Rounds Dr. Fields @ bedside for examination. No new orders received.
[2019-10-02] MEDS: D5LR 1,000 ML IV SCH (11:56)
--- NOTE | 2019-10-02 15:38 | NUR ---
Transfer Transfer patient via bed in 105B. No signs of distress noted. Endorsed patient to clinical pharmacologist using SBAR format. Patient tolerated transfer well.
--- NOTE | 2019-10-02 20:39 | NUR ---
Opening notes Report received from group therapist. Pt awake, alert, confused. BP elevated 175/98, will medicate with BP med as needed. NGT to R. nares intact, placement checked. TPN/Lipids infusing at ordered rate R. IJ double lumen. Reed catheter draining to gravity with dark yellow urine. Abd dressing C/D/I. Pt incontinent of BM, pericare provided with HAIRSPRING FABRICATION SUPERVISOR assist. Daughter at bedside. Call light within reach. Bed low, locked, bed alarm on. To monitor.
[2019-10-02] MEDS ORDERED: TPN CENTRAL 0.0001 ML, SODIUM ACETATE 40 MEQ, POTASSIUM CHLORIDE 20 MEQ, K PHOS 12 MM, ... IV SCH ×10 (21:00)
--- NOTE | 2019-10-02 21:31 | NUR ---
Apresoline IVP BP med Apresoline 10mg IVP administered as needed for BP 175/98, will continue to monitor vitals.
[2019-10-03] MEDS: PIPERACILLIN/TAZO 2.25G/DEX-IS 50 ML IV SCH ×4 (00:11→17:41)
[2019-10-03] MEDS: INSULIN REGULAR, HUMAN 100 UNITS/ML, 10 ML VIAL (humuLIN R) SUBCUT PRN ×4 (00:21→17:53)
--- NOTE | 2019-10-03 00:21 | NUR ---
Blood glucose Pt asleep, easily arousable. BS checked 293. 6 units regular insulin administered per protocol. To monitor.
[2019-10-03 00:38] VITALS: BP_SYST 141
[2019-10-03] MEDS: ALBUTEROL SULFATE 0.083% 2.5 MG/3 ML VIAL.NEB INH SCH ×5 (02:40→20:23)
--- NOTE | 2019-10-03 03:17 | NUR ---
Rounds Pt asleep, no s/s distress or discomfort noted. NGT feeding R. nare running at ordered rate. HOB maintained elevated. R. hand mitten on. Reed catheter draining to gravity. Safety measures maintained. To monitor.
[2019-10-03] MEDS: FAT EMULSIONS 250 ML IV SCH (03:37)
--- NOTE | 2019-10-03 04:00 | NUR ---
Wound care Pt asleep, easily arousable. Pt incontinent of loose BM. Pericare provided. Srinivas Buttocks wound dressing changed, cleansed and patted dry and applied optifoam dressing. Pt repositioned. To monitor.
[2019-10-03] MEDS: metroNIDAZOLE 500 mg/NS 100 ML IV SCH ×3 (06:08→22:00)
--- NOTE | 2019-10-03 06:18 | NUR ---
Closing notes Pt awake, no s/s distress noted. Blood sugar checked 375, 10 units reg insulin administered per protocol. TPN/lipids/IV fluids/abx infusing at ordered rates R. IJ dressing C/D/I. NGT right nare feeding Jevity 1.5 running at 30cc/hr, pt tolerating well. HOB maintained elevated. Pt repositioned. Reed catheter draining to gravity. Srinivas SCDs in place. Call light within reach. Bed low, locked, siderails up, bed alarm on. To endorse to AM nurse.
[2019-10-03 07:26] LABS: BASOPHILS # (AUTO) 0.1 K/uL (0.0-0.2); BASOPHILS % (AUTO) 0.4 % (0.0-2.0); EOSINOPHILS % (AUTO) 0.3 % (0.0-4.0); HEMATOCRIT 28.2 % (36-48); HEMOGLOBIN 9.5 g/dL (12.0-16.0); LYMPHOCYTES # (AUTO) 1.9 K/uL (1.0-5.5); LYMPHOCYTES % (AUTO) 13.9 % (20.5-51.5); MEAN CORPUSCULAR HEMOGLOBIN 29 pg (27-31); MEAN CORPUSCULAR HGB CONC 34 % (32-36); MEAN CORPUSCULAR VOLUME 86 fL (79.0-98.0); MONOCYTES # (AUTO) 1.1 K/uL (0.0-1.0); MONOCYTES % (AUTO) 8.2 % (1.7-9.3); NEUTROPHILS # (AUTO) 10.6 K/uL (1.8-7.7); NEUTROPHILS % (AUTO) 77.2 % (40.0-70.0); PLATELET COUNT (AUTO) 209 K/uL (130-430); RED BLOOD CELL COUNT(AUTO) 3.27 MIL/uL (4.2-6.2); RED CELL DISTRIBUTION WIDTH 16.4 % (9.0-15.0); WHITE BLOOD COUNT (AUTO) 13.8 K/uL (4.8-10.8)
[2019-10-03] MEDS: D5LR 1,000 ML IV SCH (09:52)
[2019-10-03] MEDS: ATENOLOL 50 MG TABLET (TENORMIN) PO SCH ×2 (09:52→22:05)
[2019-10-03] MEDS: MULTIVIT-MINERALS/FERROUS GLUC 15 ML UDC GT SCH (09:52)
[2019-10-03 11:24] LABS: ALANINE AMINOTRANSFERASE 11 U/L (12-78); ANION GAP 11 (5-15); ASPARTATE AMINOTRANSFERASE 17 U/L (10-37); CALCIUM 8.7 mg/dL (8.4-11.0); CHLORIDE 110 mmol/L (98-107); CREATININE 0.85 mg/dL (0.55-1.30); POTASSIUM 3.1 mmol/L (3.5-5.1); SODIUM SERUM 147 mmol/L (136-145); TOTAL BILIRUBIN 0.3 mg/dL (0.0-1.0); UREA NITROGEN, BLOOD 20 mg/dL (8-21)
[2019-10-03 11:41] LABS: GLUCOSE 497 mg/dL (70-99)
[2019-10-03 12:11] VITALS: BP_SYST 149
[2019-10-03] MEDS: ASPIRIN 600 MG/SUPP.RECT RC SCH (12:14)
[2019-10-03] MEDS: MORPHINE 2 MG/ML INJ. SYRINGE IVP PRN (12:15)
--- NOTE | 2019-10-03 12:17 | NUR ---
morphine 2 mg iv give. flush 10cc of normal saline.
[2019-10-03 13:03] VITALS: BP_SYST 144
--- NOTE | 2019-10-03 16:02 | NUR ---
DC PLANNING RECEIVED CALL FROM MIKKI WITH ASSISTED LIVING TURBINE ENGINE ASSEMBLER REQUESTING INFORMATION ON PATIENT ADVISED SHE IS NOT INVOLVED IN PLACEMENT OF THE PATIENT SHE IS A FRIEND OF THE DAUGHTER. ADVISED UNFORTUNATELY UNABLE TO PROVIDE STATUS UPDATE ON PATIENT WITHOUT HER BEING ON FACESHEET OR CONSENT FROM NOK. ADVISED DAUGHTER OF PATIEINT WAS CONFUSED ON WHAT IS GOING ON WITH PATIENT VERÓNICA WAS TRYING TO HELP GET INFORMATION SO THE DAUGHTER COULD UNDERSTAND. ADVISED BEST FOR DAUGHTER TO SPEAK WITH BEDSIDE NURSING FOR CARE AND UPDATES AND IF NEEDED COULD REQUEST TO SPEAK WITH PHYSICIANS.
[2019-10-03 17:02] VITALS: BP_SYST 143
[2019-10-03] MEDS ORDERED: metroNIDAZOLE 500 mg/NS 100 ML IV ONE (17:15)
--- NOTE | 2019-10-03 17:26 | NUR ---
Nutrition F/U (short note d/t high patient load) & RD Recommendation RD reviewed pt's current EMR including diet Hx, physician notes, nursing notes, pertinent labs/meds/procedures, care trends, and care activity. Current Nutrition Support: Jevity 1.5 at 40 ml/hr, Free Water Flush: 150 via NGT x0 days Subjective Information: Current TF regimen is not appropriate for pt's current condition. Pt noted w/ elevated BG levels and Hx of DM per EMR. TPN was D/C today per EMR records. Recommend: Glucerna 1.5 at 50 ml/hr, Mark BID, Free Water Flush: 150 ml Q4h via NGT Provides: 1960 kcal/day, 104 gm protein/day, and 1811 ml free water/day Meets: 89% of lower end of estimated caloric needs and 128% of upper end of estimated protein needs High Risk; RD to F/U within 2-3 days
[2019-10-03 22:00] VITALS: BP_SYST 148
[2019-10-04 00:58] VITALS: BP_SYST 162
[2019-10-04] MEDS: PIPERACILLIN/TAZO 2.25G/DEX-IS 50 ML IV SCH ×2 (01:12→05:22)
[2019-10-04] MEDS: INSULIN REGULAR, HUMAN 100 UNITS/ML, 10 ML VIAL (humuLIN R) SUBCUT PRN ×4 (01:16→17:51)
[2019-10-04] MEDS: ALBUTEROL SULFATE 0.083% 2.5 MG/3 ML VIAL.NEB INH SCH ×6 (03:14→19:05)
--- NOTE | 2019-10-04 04:15 | NUR ---
Assumed nursing care of pt from nurse Lamar. Pt is awake and confused. Pt is also non-verbal. No acute distress noted at this time. IVF of D5LR is infusing well via RIJ at 30ml/hr and RIJ dressing is dry and intact. Pt is tolerating NGT feeding well. Fall and safety precautions are in place. Addendum: 10/04/19 at 0509 by Guillermina Torres RN Abdominal dressing is dry and intact. Mitten on right hand noted and no circulatory impairment noted.
--- NOTE | 2019-10-04 04:15 | NUR ---
Report endorsed to staff nurse.
[2019-10-04] MEDS: D5LR 1,000 ML IV SCH (04:21)
--- NOTE | 2019-10-04 06:30 | NUR ---
Pt is awake and resting comfortably in bed. All pt's needs were attended to. No fall or injury noted this shift. Fall and safety precautions are in place. IVF and NGT Feeding are infusing well. Will endorse to day shift nurse.
[2019-10-04] MEDS: metroNIDAZOLE 500 mg/NS 100 ML IV SCH ×3 (06:35→22:28)
--- NOTE | 2019-10-04 07:30 | NUR ---
INITIAL NOTE PT RESTING IN BED. NO ACUTE DISTRESS NOTED. BREATHING EVEN AND UNLABORED, PT ON 2L NASAL CANNULA TOLERATING WELL. IVF INFUSING WELL, AVITIA DRAINING TO GRAVITY. CALL LIGHT WITHIN REACH, BED IN LOW AND LOCKED POSITION WITH BED ALARM ON.
[2019-10-04 08:28] LABS: BASOPHILS % (AUTO) 0.2 % (0.0-2.0); EOSINOPHILS # (AUTO) 0.1 K/uL (0.0-0.4); EOSINOPHILS % (AUTO) 0.5 % (0.0-4.0); HEMATOCRIT 24.4 % (36-48); HEMOGLOBIN 8.1 g/dL (12.0-16.0); LYMPHOCYTES # (AUTO) 1.8 K/uL (1.0-5.5); LYMPHOCYTES % (AUTO) 12.9 % (20.5-51.5); MEAN CORPUSCULAR HEMOGLOBIN 29 pg (27-31); MEAN CORPUSCULAR HGB CONC 33 % (32-36); MEAN CORPUSCULAR VOLUME 87 fL (79.0-98.0); MONOCYTES % (AUTO) 7.4 % (1.7-9.3); NEUTROPHILS # (AUTO) 10.9 K/uL (1.8-7.7); PLATELET COUNT (AUTO) 230 K/uL (130-430); RED BLOOD CELL COUNT(AUTO) 2.81 MIL/uL (4.2-6.2); RED CELL DISTRIBUTION WIDTH 16.5 % (9.0-15.0); WHITE BLOOD COUNT (AUTO) 13.7 K/uL (4.8-10.8)
[2019-10-04 08:46] LABS: ALANINE AMINOTRANSFERASE 10 U/L (12-78); ANION GAP 9 (5-15); ASPARTATE AMINOTRANSFERASE 13 U/L (10-37); CALCIUM 8.9 mg/dL (8.4-11.0); CHLORIDE 119 mmol/L (98-107); GLUCOSE 383 mg/dL (70-99); POTASSIUM 3.1 mmol/L (3.5-5.1); SODIUM SERUM 157 mmol/L (136-145); TOTAL BILIRUBIN 0.2 mg/dL (0.0-1.0); UREA NITROGEN, BLOOD 24 mg/dL (8-21)
[2019-10-04] MEDS: MULTIVIT-MINERALS/FERROUS GLUC 15 ML UDC GT SCH (09:15)
[2019-10-04] MEDS: ASPIRIN 600 MG/SUPP.RECT RC SCH (09:15)
[2019-10-04] MEDS: ATENOLOL 50 MG TABLET (TENORMIN) PO SCH ×2 (09:16→21:00)
--- NOTE | 2019-10-04 09:32 | NUR ---
GI consult called: for Dr. Hernandez, regarding g tube, ordered by Dr. Miranda, spoke with Glendy.
--- NOTE | 2019-10-04 09:34 | NUR ---
DR. SMITH SPOKE WITH MD VIA PHONE, PEG TUBE WILL BE DONE THIS AFTERNOON, CONSENT TO BE SIGNED, AND TUBE FEEDING TO BE HELD.
[2019-10-04] MEDS: MORPHINE 2 MG/ML INJ. SYRINGE IVP PRN ×2 (09:57→20:30)
--- NOTE | 2019-10-04 11:45 | NUR ---
RN ROUNDS PT RESTING, ON 2L NASAL CANNULA, SATURATING AT 97% RESPIRATIONS AT 19. FAMILY AT BEDSIDE. FAMILY WOULD LIKE TO SPEAK WITH DR. RAYMUNDO.
[2019-10-04 12:00] VITALS: BP_SYST 133
--- NOTE | 2019-10-04 12:13 | NUR ---
PAGED DR. RAYMUNDO
--- NOTE | 2019-10-04 13:30 | NUR ---
RN ROUNDS PT RESTING, NO ACUTE DISTRESS NOTED, FAMILY AT BEDSIDE.
[2019-10-04] MEDS ORDERED: MEPERIDINE HCL/PF 100 MG/ML AMP ONE (13:49)
[2019-10-04] MEDS ORDERED: MIDAZOLAM HCL 5 MG/5 ML VIAL ONE (13:50)
--- NOTE | 2019-10-04 14:27 | NUR ---
DC PLANNING: CM CONTACTED DR. GAYLE FOR DC PLAN NO UPDATE GIVEN.
--- NOTE | 2019-10-04 14:56 | NUR ---
DC PLANNING: RECEIVED A CALL FROM [facility] (JENNIFER) @ . THEY HAVE BEEN CONTACTED BY [facility] TO TRANSFER PATIENT IN [facility]. PROVIDED DR. GAYLE'S CONTACT NUMBER FOR [facility] TO [facility]. PER JENNIFER, SHE WILL CALL CM BACK FOR ANY UPDATE. CM TO FOLLOW UP NEEDED. Addendum: 10/04/19 at 1543 by Elise Mujica RN RECEIVED A CALL FROM JENNIFER (TRANSFER NURSE AT [facility] ) @ . MD TO MD HAS BEEN DONE WITH DR. SHILPA CARVAJAL. THEY CURRENTLY DO NOT HAVE BED AVAILABLE FOR THE PATIENT. THEIR DOCTOR (DR. SHILPA CARVAJAL) STATED THAT SINCE NOT SURE WHEN BED IS GOING TO BE AVAILABLE TO CONTINUE WITH PEG PLACEMENT PLANNED BY THE G.I. AT [facility]. PER JENNIFER, ONCE PATIENT IS STABLE AFTER THE PEG PLACEMENT TO CALL HER TOMORROW AT [phone] SO SHE CAN WORK ON OBTAINING BED FOR THE PATIENT TO TRANSFER IN [facility]. PER JENNIFER, SHE HAS ALL THE CLINICAL PACKET RECEIVED FROM [facility] EARLIER TODAY. ONLY NEED THE TRANSFER ORDER. JOCELYNE FAXED TRANSFER ORDER TO [facility] @ F CM MADE CHARGE NURSE (SADE) AWARE OF THE PLAN. Addendum: 10/04/19 at 1554 by Elise Mujica RN JOCELYNE CONTACTED MERY (JOCELYNE @ [facility]) @ P UPDATE PROVIDED REGARDING THE TRANSFER. PER MERY, THEY WILL APPROVE FOR THE PATIENT TO HAVE PEG PLACEMENT AT [facility]. IF PATIENT WILL BE TRANSFERRING TO [facility] TOMORROW. TRANSPORTATION CAN BE USED: [facility] OR [facility] AUTH IS [id number]
--- NOTE | 2019-10-04 15:30 | NUR ---
RN ROUNDS ORAL CARE DONE, PT TOLERATED WELL, REPOSITIONED FOR COMFORT.
[2019-10-04] MEDS ORDERED: CEFAZOLIN 1 GM IVPB PREMIX 50 ML IV ONE (15:45)
--- NOTE | 2019-10-04 16:04 | NUR ---
WOUND EVALUATION: Wound Consult received from Dr. Miranda. Thank you, Dr. Miranda, for the consult. Patient received in a [place] Bed with an IsoFlex EVELYN mattress with low air-loss therapy, eyes closed, nonverbal, nonresponsive to verbal commands. Patient is unable to turn in bed independently. Yang Score is a 13. Past Medical History: Diabetes Mellitus, and Transient Ischemic Attacks. Patient presented to the ER with slurred speech per daughter, as well as was nausea, vomiting, and abdominal pain. Recent Labs: WBC 13.7, RBC 2.81, hemoglobin 8.1, hematocrit 24.4, sodium 157, potassium 3.1, chloride 119, BUN 24, creatinine 0.90, glucose 383, POC glucose 290, albumin 2.0. Microbiology: MRSA screen results negative. Surgery Gram Stain culture results in progress. Surgery aerobic and anaerobic culture results iand Endotracheal culture results negative. Intrinsic factors that delay wound healing: Diabetes mellitus, Hypoalbuminemia, TIA's. Extrinsic factors that delay wound healing: Immobility. Wound Assessment: 1. Sacral area: Multiple closed bullae, white/clear in color. Unable to see skin underneath. Surrounding tissue has blanchable erythema and dark discolored skin. Site measures 3.5 cm x 9.0 cm. 2. Right buttock: Open bulla, with 100% red tissue. Moisture barrier cream covers bulla completely. No odor, no drainage. Soheila-bulla intact. Surrounding tissue has blanchable erythema and dark discolored skin. Bulla measures 1.5 cm x 2.0 cm. Recommend: Cleanse site with normal saline. Apply moisture barrier cream to open bulla and soheila-bullae. Cover with Sacral foam dressing. Perform site care daily, and as needed for dressing soiling or dislodgement. Also recommend: Reposition patient every hour with pillow support and off-load pressure areas with pillows for pressure re-distribution. Offload, elevate and float bilateral heels with pillows. Perform skin care and monitor skin integrity Q shift. Use moisture barrier cream on buttocks and other moisture susceptible areas QID and as needed for soiling. Maintain patient on a low air-loss mattress. Addendum: 10/04/19 at 1718 by Eduardo Manley RN Per nurse Casey, family is aware of wound site.
[2019-10-04 17:03] VITALS: BP_SYST 139
--- NOTE | 2019-10-04 17:30 | NUR ---
RN ROUNDS PT RESTING IN BED, NO ACUTE DISTRESS NOTED, REPOSITIONED FOR COMFORT
--- NOTE | 2019-10-04 17:54 | NUR ---
DR. BREANNE ODONNELL AT BEDSIDE EXAMINING PATIENT. FAMILY AT BEDSIDE.
[2019-10-04] MEDS ORDERED: POTASSIUM CHLORIDE 40 MEQ in D5W 250 ML IV ONE (18:00)
[2019-10-04 19:00] VITALS: BP_SYST 148
--- NOTE | 2019-10-04 19:15 | NUR ---
change of shift.pt.is scheduled for peg placement;per .yanick day-shift has placed several pages to to f/u re;peg placement:no return call w/in the day shift.i am to attend to locate of peg placement.issue.pt.presents ngt-tube;rt.natesd.ng-t feed has been on-hold as of 1000a per 's order.pt.presents rt.inj iv access intact;patent;iv fluids infusing. pt.presents ervin cath;intact;patent urine content present.pt.present mitten;rt.hand.in place skin/circulation assessed.family@bedside.general status stable.respiratory status;slight labored.o2 therapy via nasal cannulae:@2l/min.call light/telephone w/in reach of the pt.
--- NOTE | 2019-10-04 19:30 | NUR ---
CLOSING NOTE PT RESTING IN BED, IVF INFUSING WELL, AVITIA DRAINING TO GRAVITY. FAMILY AT BEDSIDE, ALL NEEDS MET THROUGH OUT SHIFT. CALL LIGHT WITHIN REACH, BED IN LOW AND LOCKED POSITION WITH BED ALARM ON. PT CARE ENDORSED TO BIOLOGY LABORATORY ASSISTANT RN.
[2019-10-04 20:00] VITALS: BP_SYST 148
--- NOTE | 2019-10-04 20:29 | NUR ---
PAGED PAGED DOCTOR SARAH BUT DOCTOR SANDHYA IS SOIL TECHNICIAN
--- NOTE | 2019-10-04 20:45 | NUR ---
PAGED PAGED DOCTOR BREANNE
--- NOTE | 2019-10-04 21:00 | NUR ---
2100PMEDICATION;TENORMIN HELD.THE NG-TUBE PLACEMENT NOT CONFIRMED.I HAVE ADVANCED THE NG-TUBE 5-6CM PER 'S ORDER.I HAVE PAGED EXCHANGE FOR F/U CXR.
--- NOTE | 2019-10-04 21:00 | NUR ---
exchange paged x3.;merry returned the page.i apprised that had ordered the advancement of the pt's;ng-tube an additional:5-6cm;upon review of the am;cxr..i had advanced the ng-tube but required an md's order for the s/p advancement cxr. consented to the cxr;confirm placement of the ng-tube.
--- NOTE | 2019-10-04 21:09 | NUR ---
PAGED PAGED DOCTOR IRWIN
--- NOTE | 2019-10-04 22:00 | NUR ---
pt.assessed.pt.presents restless affect.pt.assessed for cleanliness.pt.repositioned.rt.inj iv access intact;patent.i have changed the iv fluids bag:per md's order;d5w.infusing@80ml/hr.i have initiated the administration k+rider;40meq's.ervin cath intact;patent;urine content present. general status stable.respiratory status stable;02-sat5=96%. to be paged re;restless affect:no medication is ordered@this hour.re;anxiety. call light/telephone placed w/in reach. of the pt.
--- NOTE | 2019-10-04 22:22 | NUR ---
2ND PAGED PAGED DOCTOR GAYLE FOR ORDERS
[2019-10-04] MEDS: D5W 1,000 ML IV SCH (22:27)
--- NOTE | 2019-10-04 22:30 | NUR ---
i have located the s/p cxr ng-tube placement.the results stated:to advance the ng-tube an additional 15-16cm. i conferred/discussed the results w/khang;rn/chg.and the ng-tube is to be removed in am s/p peg placement.it was decided to leave ng-rube ion its current location.the ng-tube feed:is hold; order hold g-tube feed as of 1000a per and would only be resumed for an additional 1hr.
--- NOTE | 2019-10-04 22:30 | NUR ---
returned the page.i apprised of the pt's status;affect;restless. has ordered:ativan:0.5mg ivp q-4hrs/p;anxiety;restlessness.
[2019-10-04] MEDS ORDERED: LORazepam 2 MG/ML VIAL IVP PRN (23:00)
--- NOTE | 2019-10-05 | NUR ---
pt.assessed.v/s assessed;b/p values elevated;to f/u re;b/p medications;prn.pt.assessed for cleanliness.pt.repositioned.rt.inj iv access intact;patent.iv fluids,k+rider infusing.ng-tube:rt.nares intact;patent;ng-tube feed hold;2/t peg placement in the am; 10/05/29. per .misti;rt.hand in place:skin/circulation assessed.ervin cath intact;patent;urine content present.i have assessed the blood glucose;[id number].i have administered insulin;regular;4-units.per sliding scale parameters.c02-sat%=94%./call light/telephone placed w/in the reach of the pt.
[2019-10-05] MEDS: ALBUTEROL SULFATE 0.083% 2.5 MG/3 ML VIAL.NEB INH SCH ×7 (00:38→23:22)
[2019-10-05] MEDS: hydrALAZINE HCL 20 MG/ML VIAL IVP PRN (00:42)
[2019-10-05] MEDS: INSULIN REGULAR, HUMAN 100 UNITS/ML, 10 ML VIAL (humuLIN R) SUBCUT PRN ×3 (00:52→12:10)
[2019-10-05 00:55] VITALS: BP_SYST 164
--- NOTE | 2019-10-05 01:00 | NUR ---
i have administered vasotec;1.25mg ivp re;b/p elevation.to f/u re-assess the b/p.
--- NOTE | 2019-10-05 02:00 | NUR ---
pt.assessed.pt.presents quiescent affect;calm,somnolent.pt.assessed for cleanliness.pt.repositioned.mitten in place;skin/circulation assessed. rt./inj iv access intact;patent:iv fluids,k+rider infusing.ervin cath intact;patent;urine content present.ng-t intact; rt.nares.skin assessed.general status stable respiratory status stable:%=96%.call light/telephone placed w/in reach of the pt.
--- NOTE | 2019-10-05 04:00 | NUR ---
pt.assessed.pt;assessed for cleanliness.pt.repositioned.pt.presents quiescent affect;calm,somnolent.mitten in place;skin/circulation assessed. rt.inj iv access intact;patent iv fluids infusing,k+rider infusion completed.ervin cath intact patent urine content present. general status stable respiratory status stable:o2-sat%=94%.call light/telephone placed w/in the reach of the pt.
[2019-10-05] MEDS: metroNIDAZOLE 500 mg/NS 100 ML IV SCH ×3 (05:52→23:26)
--- NOTE | 2019-10-05 06:11 | NUR ---
pt.assessed.pt.assessed for cleanliness.pt.repositioned,cleaned.i have suctioned the pt.ng-tube;rt.nares skin assessed.mitten;rt.hand in place;skin/circulation assessed.rt.inj.iv access intact;patent iv fluids infusing.ervin cath intact;patent:urine content present.general status stable respiratory status stable.call light/telephone placed w/in the reach of the pt.
--- NOTE | 2019-10-05 07:30 | NUR ---
INITIAL NOTE PT RESTING IN BED, IVF INFUSING WELL, BREATHING EVEN AND UNLABORED, PT ON 2L NASAL CANNULA, AVITIA DRAINING TO GRAVITY. CALL LIGHT WITHIN REACH, BED IN LOW AND LOCKED POSITION WITH BED ALARM ON.
--- NOTE | 2019-10-05 08:20 | NUR ---
DR. SMITH SPOKE WITH MD AT NURSES STATION. POSSIBILITY OF PEG TO PLACEMENT EITHER TODAY OR TOMORROW IF PT DOES NOT TRANSFER. MD WILL KEEP IN TOUCH AND UPDATE ON WHETHER PROCEDURE TO BE DONE. MD TO CONTINUE TUBE FEEDING FOR NOW.
--- NOTE | 2019-10-05 09:23 | NUR ---
DR. RAYMUNDO SPOKE WITH MD AT NURSES STATION. UPDATED MD ON POSSIBLE PEG TODAY OR PT TO BE TRANSFERRED TO [facility]. WILL CLARIFY WITH ADMITTING MD. TO ORDER ABG. CONTINUE CURRENT POC.
[2019-10-05 09:26] LABS: BASOPHILS # (AUTO) 0.1 K/uL (0.0-0.2); BASOPHILS % (AUTO) 0.3 % (0.0-2.0); EOSINOPHILS # (AUTO) 0.1 K/uL (0.0-0.4); EOSINOPHILS % (AUTO) 0.8 % (0.0-4.0); HEMATOCRIT 23.5 % (36-48); HEMOGLOBIN 7.9 g/dL (12.0-16.0); LYMPHOCYTES # (AUTO) 2.6 K/uL (1.0-5.5); LYMPHOCYTES % (AUTO) 15.1 % (20.5-51.5); MEAN CORPUSCULAR HEMOGLOBIN 30 pg (27-31); MEAN CORPUSCULAR HGB CONC 34 % (32-36); MEAN CORPUSCULAR VOLUME 88 fL (79.0-98.0); MONOCYTES # (AUTO) 1.1 K/uL (0.0-1.0); MONOCYTES % (AUTO) 6.5 % (1.7-9.3); NEUTROPHILS # (AUTO) 13.3 K/uL (1.8-7.7); NEUTROPHILS % (AUTO) 77.3 % (40.0-70.0); PLATELET COUNT (AUTO) 239 K/uL (130-430); RED BLOOD CELL COUNT(AUTO) 2.67 MIL/uL (4.2-6.2); RED CELL DISTRIBUTION WIDTH 16.7 % (9.0-15.0); WHITE BLOOD COUNT (AUTO) 17.2 K/uL (4.8-10.8)
--- NOTE | 2019-10-05 09:30 | NUR ---
RN ROUNDS PT RESTING IN BED. RESPIRATORY AT BEDSIDE DOING NASAL SUCTIONING. PT TOLERATING WELL. WILL CONTINUE TO MONITOR.
--- NOTE | 2019-10-05 09:31 | NUR ---
ADVANCED NG TUBE ADVANCE NG TUBE 15CM, PT TOLERATED WELL. CHEST XRAY ORDERED
[2019-10-05 09:42] LABS: ANION GAP 5 (5-15); CALCIUM 8.7 mg/dL (8.4-11.0); CREATININE 0.88 mg/dL (0.55-1.30); GLUCOSE 294 mg/dL (70-99); POTASSIUM 3.9 mmol/L (3.5-5.1); SODIUM SERUM 157 mmol/L (136-145); UREA NITROGEN, BLOOD 27 mg/dL (8-21)
[2019-10-05] MEDS ORDERED: VANCOMYCIN HCL 1 GM/NS PREMIX 250 ML IV ONE (09:45)
--- NOTE | 2019-10-05 09:45 | NUR ---
ADVANCED NG TUBE NG TUBED ADVANCED ANOTHER 6CM. PT TOLERATED WELL. XRAY AT BEDSIDE.
[2019-10-05 09:46] LABS: CHLORIDE 122 mmol/L (98-107)
--- NOTE | 2019-10-05 09:46 | NUR ---
CRITICAL LAB/DR. RAYMUNDO CRITICAL LAB CHLORIDE 122. DR. RAYMUNDO AT NURSING STATION, INFORMED MD OF CRITICAL LAB. NEW ORDERS RECEIVED, VERIFIED WITH READ BACK.
--- NOTE | 2019-10-05 10:20 | NUR ---
DR. ALY ODONNELL AT BEDSIDE EXAMINING PT.
[2019-10-05] MEDS: D5W 1,000 ML IV SCH ×2 (10:46→20:20)
[2019-10-05] MEDS: ASPIRIN 600 MG/SUPP.RECT RC SCH (10:46)
[2019-10-05] MEDS: MULTIVIT-MINERALS/FERROUS GLUC 15 ML UDC GT SCH (10:46)
[2019-10-05] MEDS: ATENOLOL 50 MG TABLET (TENORMIN) PO SCH ×2 (10:47→23:27)
--- NOTE | 2019-10-05 11:20 | NUR ---
RN ROUNDS PT INCONTINENT OF BOWEL. STOOL WAS LOOSE AND BLACK. CHANGED PT AND LINENS, PT TOLERATED WELL.
--- NOTE | 2019-10-05 11:27 | NUR ---
DR. SMITH SPOKE WITH MD VIA PHONE, INFORMED MD THAT PT HAD TWO LOOSE BOWEL MOVEMENT THAT WERE BLACK. TUBE FEEDING TO BE HELD AT THIS TIME.
[2019-10-05] MEDS: CEFEPIME 1 GM in D5W 50 ML IV SCH ×2 (11:33→23:25)
[2019-10-05] MEDS ORDERED: INSULIN GLARGINE 100 UNITS/ML 10 ML VIAL SUBCUT ONE (11:45)
[2019-10-05 12:00] VITALS: BP_SYST 135
[2019-10-05] MEDS ORDERED: SIMETHICONE 40 MG/0.6 ML ML ONE (12:12)
[2019-10-05] MEDS ORDERED: MIDAZOLAM HCL 5 MG/5 ML VIAL ONE (12:12)
[2019-10-05] MEDS ORDERED: MEPERIDINE HCL/PF 100 MG/ML AMP ONE (12:12)
--- NOTE | 2019-10-05 12:35 | NUR ---
PT LEFT TO GI
[2019-10-05 13:26] LABS: BILIRUBIN,URINE NEGATIVE (NEGATIVE); BLOOD, URINE TRACE (NEGATIVE); CLARITY/URINE CLEAR (CLEAR); COLOR,URINE YELLOW (YELLOW); GLUCOSE,URINE 3+ (NEGATIVE); KETONES,URINE NEGATIVE (NEGATIVE); LEUKOCYTE ESTERASE ,URINE NEGATIVE (NEGATIVE); NITRITE, URINE NEGATIVE (NEGATIVE); PROTEIN URINE TRACE (NEGATIVE); UROBILINOGEN,URINE 0.2 (0.2-1.0)
[2019-10-05] MEDS ORDERED: PANTOPRAZOLE SODIUM 40 MG/VIAL (PROTONIX) IVP ONE ×2 (13:45)
[2019-10-05 13:48] VITALS: BP_SYST 133
--- NOTE | 2019-10-05 13:48 | NUR ---
RETURN FROM GI PT STABLE, ON 2L NASAL CANNULA, VITALS STABLE, NO ACUTE DISTRESS NOTED, WILL CONTINUE TO MONITOR.
[2019-10-05 13:55] LABS: BACTERIA,URINE FEW /HPF (None Seen); MUCUS,URINE 1+ /LPF (None Seen); URIC ACID CRYSTALS,URINE 0-10 /HPF (None Seen); WBC,URINE 0-3 /HPF (0-3)
--- NOTE | 2019-10-05 14:43 | NUR ---
CRITICAL LAB ANAND ODONNELL, CHLORIDE 123, H/H 7.129/12.
[2019-10-05 14:53] LABS: BASOPHILS # (AUTO) 0.1 K/uL (0.0-0.2); BASOPHILS % (AUTO) 0.6 % (0.0-2.0); EOSINOPHILS # (AUTO) 0.2 K/uL (0.0-0.4); EOSINOPHILS % (AUTO) 1.3 % (0.0-4.0); HEMOGLOBIN 7.1 g/dL (12.0-16.0); LYMPHOCYTES # (AUTO) 1.9 K/uL (1.0-5.5); LYMPHOCYTES % (AUTO) 13.8 % (20.5-51.5); MEAN CORPUSCULAR HEMOGLOBIN 30 pg (27-31); MEAN CORPUSCULAR HGB CONC 34 % (32-36); MEAN CORPUSCULAR VOLUME 89 fL (79.0-98.0); MONOCYTES # (AUTO) 0.8 K/uL (0.0-1.0); NEUTROPHILS # (AUTO) 10.8 K/uL (1.8-7.7); NEUTROPHILS % (AUTO) 78.3 % (40.0-70.0); PLATELET COUNT (AUTO) 204 K/uL (130-430); RED CELL DISTRIBUTION WIDTH 16.9 % (9.0-15.0); WHITE BLOOD COUNT (AUTO) 13.8 K/uL (4.8-10.8)
[2019-10-05 15:12] LABS: ANION GAP 4 (5-15); CALCIUM 8.5 mg/dL (8.4-11.0); CREATININE 0.94 mg/dL (0.55-1.30); GLUCOSE 269 mg/dL (70-99); POTASSIUM 3.4 mmol/L (3.5-5.1); SODIUM SERUM 157 mmol/L (136-145); UREA NITROGEN, BLOOD 27 mg/dL (8-21)
[2019-10-05 15:22] LABS: CHLORIDE 123 mmol/L (98-107)
[2019-10-05 15:28] LABS: HEMATOCRIT 21.2 % (36-48)
[2019-10-05 15:30] LABS: TOTAL IRON BIND. CAPACITY 167 ug/dL (250-450)
--- NOTE | 2019-10-05 15:30 | NUR ---
RN ROUNDS PT RESTING IN BED, NO ACUTE DISTRESS NOTED, BREATHING EVEN AND UNLABORED.
--- NOTE | 2019-10-05 15:48 | NUR ---
PAGED PAGED ESTEPHANIA MAGANA AT [phone] SPOKE WITH EXCHANGE.
[2019-10-05] MEDS ORDERED: POTASSIUM CHLORIDE 40 MEQ in NS 250 ML IV ONE (16:00)
--- NOTE | 2019-10-05 16:00 | NUR ---
DR. DE LA O SPOKE WITH VIA PHONE, MD INFORMED OF CRITICAL LAB HCT 7.1, HGB 21.2, CHLORIDE 123, AND K 3.4. NEW ORDERS GIVEN, VERIFIED WITH TELEPHONE READ BACK.
--- NOTE | 2019-10-05 17:30 | NUR ---
RN ROUNDS PT RESTING, NO ACUTE DISTRESS NOTED, PT ON 2L NASAL CANNULA TOLERATING WELL.
[2019-10-05 19:00] VITALS: BP_SYST 139
[2019-10-05] MEDS ORDERED: SOD FERRIC GLUC COMPLEX/SUC 125 MG in NS 100 ML IV SCH (19:15)
--- NOTE | 2019-10-05 19:15 | NUR ---
change of shift.pt.presents peg placement;,g-t feed to be initiated in the am;10/06/19.rt.inj intact;iv fluids infusing. k+rider infusing.ervin cath intact.family presents.
--- NOTE | 2019-10-05 19:30 | NUR ---
CLOSING NOTE PT RESTING IN BED, NO ACUTE DISTRESS NOTED, BREATHING EVEN AND UNLABORED. IVF INFUSING WELL. AVITIA DRAINING TO GRAVITY. RIGHT WRIST MITTON RESTRAINT IN PLACE. FAMILY AT BEDSIDE. ALL NEEDS MET THROUGH OUT SHIFT. CALL LIGHT WITHIN REACH, BED IN LOW AND LOCKED POSITION WITH BED ALARM ON. PT CARE ENDORSED TO UNIT NURSE RN.
[2019-10-05 20:00] VITALS: BP_SYST 139
--- NOTE | 2019-10-05 20:00 | NUR ---
pt assessed.v/s assessed;values w/in normal limits.o2-sat%=96%.rt.inj intact;iv fluids infusing.g-tube intact.clamped. ervin cath intact.pt.repositioned.ervin cath intact.mitten;rt.hand in place.skin/circulation assessed.family present.i have apprised the dtr of the subsequent issues;g-t fed it be initatein the am;10/06/19.morphien 2mg ivp to be renewd ativan0.5mg ivp ordered;anxiety.
--- NOTE | 2019-10-05 20:15 | NUR ---
Paged Dr. Clifford, lawn care professional for Dr. Miranda s/bridget Valles
[2019-10-05] MEDS ORDERED: MORPHINE 2 MG/ML INJ. SYRINGE IVP PRN (20:30)
[2019-10-05] MEDS ORDERED: SOD FERRIC GLUC COMPLEX/SUC 62.5 MG/5 ML VIAL (FERRLECIT) IV ONE (20:59)
--- NOTE | 2019-10-05 21:00 | NUR ---
2100p medication administered.
--- NOTE | 2019-10-05 22:00 | NUR ---
pt assessed.pt repositioned.rt.inj intact;iv fluids infusing.k+rider infusion completed.i have administered the initial dose;ferriclet;ivpb. via rt.inj.ervin cath ianctt.o2-sat%=96.%.mitten;rt,had intact;skin/circulation assessed.
[2019-10-05] MEDS: PANTOPRAZOLE SODIUM 40 MG/VIAL (PROTONIX) IVP SCH (23:26)
[2019-10-06] VITALS: BP_SYST 147
--- NOTE | 2019-10-06 | NUR ---
pt,assessed.v/s assessed.pt.repositioned.rt.inj intact;iv fluids infusing.ervin cath intact.rt.mitten in place;skin/circulation assessed.
--- NOTE | 2019-10-06 02:00 | NUR ---
pt assessed.pt.repositioned.pt.presents quiescent affect;calm,somnolent.mitten;rt.hand in place;skin/circulation assessed. rt.inj intact;iv fluids infusing.ervin cath intact.
[2019-10-06] MEDS: ALBUTEROL SULFATE 0.083% 2.5 MG/3 ML VIAL.NEB INH SCH ×3 (03:05→11:39)
--- NOTE | 2019-10-06 04:00 | NUR ---
pt.assessed.pt.repositioned.rt.inj iv access intact;iv fluids infusing.o2 -sat%=96%.ervin cath intact.pt.presented facial grimaces;per flacc;i have administered morphine;2mg ivp. Addendum: 10/06/19 at 0414 by Benigno Nino RN mitten;rt.hand;in place.skin/circulation assessed.
[2019-10-06] MEDS: metroNIDAZOLE 500 mg/NS 100 ML IV SCH (05:45)
[2019-10-06] MEDS: INSULIN REGULAR, HUMAN 100 UNITS/ML, 10 ML VIAL (humuLIN R) SUBCUT PRN ×2 (05:54→12:04)
[2019-10-06] MEDS: D5W 1,000 ML IV SCH ×2 (06:20→09:48)
--- NOTE | 2019-10-06 06:28 | NUR ---
pt.assessed.pt.repositioned,rt.inj intact;iv fluids infusing.rt.mitten in place;skin/circulation assessed.aziza alonzo intact. pt.cleaned. o2-sat%=96%i have initiated the g-tube feed;glucerna;2the initial rate;2oml/hr.call light w/in reach of the pt. Addendum: 10/06/19 at 0632 by Benigno Nino RN blood glucose assessed;value;151mg/dl i have adminisitered 2-units;regular insulin.per sliding scale. Addendum: 10/06/19 at 0646 by Benigno Nino RN i have administered flagyl;0600a dose.
[2019-10-06] MEDS ORDERED: SOD FERRIC GLUC COMPLEX/SUC 125 MG in NS 100 ML IV SCH (07:18)
[2019-10-06 07:40] LABS: BASOPHILS # (AUTO) 0.1 K/uL (0.0-0.2); BASOPHILS % (AUTO) 0.6 % (0.0-2.0); EOSINOPHILS # (AUTO) 0.3 K/uL (0.0-0.4); EOSINOPHILS % (AUTO) 2.6 % (0.0-4.0); LYMPHOCYTES # (AUTO) 1.8 K/uL (1.0-5.5); LYMPHOCYTES % (AUTO) 13.8 % (20.5-51.5); MEAN CORPUSCULAR HEMOGLOBIN 30 pg (27-31); MEAN CORPUSCULAR HGB CONC 34 % (32-36); MEAN CORPUSCULAR VOLUME 88 fL (79.0-98.0); MONOCYTES # (AUTO) 0.7 K/uL (0.0-1.0); MONOCYTES % (AUTO) 5.4 % (1.7-9.3); NEUTROPHILS # (AUTO) 9.9 K/uL (1.8-7.7); NEUTROPHILS % (AUTO) 77.6 % (40.0-70.0); PLATELET COUNT (AUTO) 175 K/uL (130-430); RED CELL DISTRIBUTION WIDTH 17.4 % (9.0-15.0); WHITE BLOOD COUNT (AUTO) 12.8 K/uL (4.8-10.8)
[2019-10-06 08:16] LABS: HEMATOCRIT 20.3 % (36-48)
[2019-10-06 08:25] LABS: ALANINE AMINOTRANSFERASE 11 U/L (12-78); ALBUMIN 1.9 g/dL (3.4-4.8); ANION GAP 4 (5-15); ASPARTATE AMINOTRANSFERASE 25 U/L (10-37); CALCIUM 8.4 mg/dL (8.4-11.0); CREATININE 0.84 mg/dL (0.55-1.30); GLUCOSE 163 mg/dL (70-99); POTASSIUM 3.7 mmol/L (3.5-5.1); SODIUM SERUM 156 mmol/L (136-145); TOTAL BILIRUBIN 0.4 mg/dL (0.0-1.0); UREA NITROGEN, BLOOD 23 mg/dL (8-21)
[2019-10-06 08:29] VITALS: BP_SYST 147
[2019-10-06 08:30] VITALS: BP_SYST 124
[2019-10-06 08:30] LABS: CHLORIDE 123 mmol/L (98-107)
--- NOTE | 2019-10-06 08:44 | NUR ---
[facility] RECEIVED CALL FROM ELENA FROM [facility] INQUIRING ABOUT PATIENTS TRANSFER. PER ELENA , DR GAYLE ALREADY SPOKE WITH ACCEPTING MD DR CARVAJAL FROM [place]. INFORMED ELENA THAT PEG WAS INSERTED YESTERDAY AND THERE ARE SOME CRITICAL LABS. THAT DR DE LA O IS COVERING FOR DR GAYLE TODAY.. NO ORDER FOR TRANSFER OF REPORT. PER ELENA, PATIENT WILL GO TO ROOM 333A TELEMETRY 3 STATION 2. NUMBER TO GIVE REPORT [id number]
[2019-10-06] MEDS ORDERED: INSULIN GLARGINE 100 UNITS/ML 10 ML VIAL SUBCUT SCH (09:00)
[2019-10-06] MEDS: ATENOLOL 50 MG TABLET (TENORMIN) PO SCH (09:29)
[2019-10-06] MEDS: PANTOPRAZOLE SODIUM 40 MG/VIAL (PROTONIX) IVP SCH (09:30)
[2019-10-06] MEDS: CEFEPIME 1 GM in D5W 50 ML IV SCH (09:30)
[2019-10-06] MEDS: MULTIVIT-MINERALS/FERROUS GLUC 15 ML UDC GT SCH (09:32)
[2019-10-06] MEDS: ASPIRIN 600 MG/SUPP.RECT RC SCH (09:34)
--- NOTE | 2019-10-06 11:16 | NUR ---
ARRANGED WITH [facility] TRANSFER TO [facility] BLS TRANSPORT, GOING TO STATION 2 RM 333A. 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 SPOKE TO KALPANA.
[2019-10-06 12:32] VITALS: BP_SYST 129
--- NOTE | 2019-10-06 12:32 | NUR ---
REPORT REPORT GIVEN TO ALINE ALCARAZ AT [facility], ROOM 333A, AWARE THAT FEEDING WAS STARTED AT 6 AM AND INCREASED AT 12 PT TO 30ML/HR NO RESIDUAL. PT TOLERATING FEEDING. AWARE THAT PT HAS A RIGHT IJ WITH DRESSING CLEAN AND DRY AND AVITIA CATHETER.
[2019-10-06 12:39] VITALS: BP_SYST 129
--- NOTE | 2019-10-06 13:45 | NUR ---
PT TRANSFERRED Report given to loulou at [facility]. Transfer packet with Transfer Orders and Medication Reconciliation form given to EMT with report. Exitcare provided. [facility] ID band removed, replaced with ID band with pt's name and . Pt has a f/c, right IJ catheetr and a g tube patent, flushes. Report given to increase g tube feeding as per order, 10 ml kaylie 6 hours until goal of 45cc/hr is reached, water flushes 150ml q6 hours. All belongings sent with patient. Patient left floor via gurney escorted by EMT in no distress.
[2019-10-06] MEDS ORDERED: CEFAZOLIN 2 GM IVPB PREMIX 50 ML IV ONE (21:15)
[2019-10-06] MEDS ORDERED: fentaNYL CITRATE/PF 100 MCG/2 ML AMP IVP ONE (21:15)
[2019-10-06] MEDS ORDERED: PROPOFOL 200MG/ 20ML VIAL (DIPRIVAN) IV ONE (21:15)
[2019-10-06] MEDS ORDERED: ROCURONIUM BROMIDE 10 MG/ML (ZEMURON) IV ONE (21:15)
[2019-10-06] MEDS ORDERED: MIDAZOLAM HCL 5 MG/5 ML VIAL IVP ONE (21:15)
[2019-10-06] MEDS ORDERED: LR 1,000 ML IV.SOLN IV ONE (21:15)
[2019-10-06] MEDS ORDERED: SEVOFLURANE 15 MIN GAS INH ONE (21:15)
[2019-10-06] MEDS ORDERED: NS IRRIG SOLN 1000 ML IR ONE (21:15)
== END 2019-10-06 13:50 | disposition short-term general hospital (02) | DRG 335 ==
LOC: SED 16:01 → SMU 20:11 → SIC 09-26 23:20 → STU 09-29 17:47 → SIC 09-30 15:09 → STU 10-02 18:37 → SMU 10-03 12:57
PROVIDERS: ADMIT Internal Medicine Hospice and Palliative Medicine; ATTEND Internal Medicine Hospice and Palliative Medicine
PROC: 0DB83ZZ Excision of Small Intestine, Percutaneous Approach (ICD-10-PCS; 2019-09-26)
PROC: 0DNU0ZZ Release Omentum, Open Approach (ICD-10-PCS; principal; 2019-09-26 21:15)
PROC: 0D9670Z Drainage of Stomach with Drainage Device, Via Natural or Artificial Opening (ICD-10-PCS; 2019-09-27)
PROC: 0DH63UZ Insertion of Feeding Device into Stomach, Percutaneous Approach (ICD-10-PCS; 2019-10-05)
DX: K46.1 Unspecified abdominal hernia with gangrene (principal); J18.9 Pneumonia, unspecified organism; I63.9 Cerebral infarction, unspecified; E43 Unspecified severe protein-calorie malnutrition; N17.0 Acute kidney failure with tubular necrosis; J95.821 Acute postprocedural respiratory failure; K55.9 Vascular disorder of intestine, unspecified; E11.52 Type 2 diabetes mellitus with diabetic peripheral angiopathy with gangrene; E87.1 Hypo-osmolality and hyponatremia; G81.94 Hemiplegia, unspecified affecting left nondominant side; K22.10 Ulcer of esophagus without bleeding; E66.9 Obesity, unspecified; E78.5 Hyperlipidemia, unspecified; I10 Essential (primary) hypertension; I25.10 Atherosclerotic heart disease of native coronary artery without angina pectoris; R13.10 Dysphagia, unspecified; D50.9 Iron deficiency anemia, unspecified; E11.65 Type 2 diabetes mellitus with hyperglycemia; K29.70 Gastritis, unspecified, without bleeding; K66.0 Peritoneal adhesions (postprocedural) (postinfection); R47.81 Slurred speech; Y83.8 Other surgical procedures as the cause of abnormal reaction of the patient, or of later complication, without mention of misadventure at the time of the procedure; Y82.8 Other medical devices associated with adverse incidents; Y92.230 Patient room in hospital as the place of occurrence of the external cause; Z86.73 Personal history of transient ischemic attack (TIA), and cerebral infarction without residual deficits; Z87.891 Personal history of nicotine dependence; Z90.710 Acquired absence of both cervix and uterus; Z68.26 Body mass index [BMI] 26.0-26.9, adult; Z79.84 Long term (current) use of oral hypoglycemic drugs
CPT/HCPCS: 36415; 36600; 43246; 70450-TC; 70551; 71045; 74250-TC; 80048; 80053; 80061; 81000-TC; 82164; 82803-TC; 82962; 83540-TC; 83550-TC; 83690-TC; 83735-TC; 84100-TC; 84484; 85025; 85610-TC; 86886; 86900; 86901; 87040-TC; 87070; 87070-TC; 87075-TC; 87081; 87086; 87205-TC; 88307; 92610-GN; 93005; 93306; 93880; 94002; 94003; 94640; 94760; 96361; 96374; 96375; 99285; A6209; C1751; C9113; G0378; J0360; J0690; J0692; J1815; J1940; J1956; J2175; J2250; J2270; J2405; J2543; J2704; J2765; J2916; J3010; J3370; J3475; J3480; J3490; J7030; J7040; J7050; J7060; J7120; J7613; Q9963